=== PATIENT | female | born 1935 | race American Indian/Alaskan Native ===

== ENCOUNTER 2018-09-22 08:43 | Inpatient (IN) | payer OTHER ==
--- NOTE | 2018-09-22 08:48 | PDOC ---
History of Present Illness - General Stated Complaint: PAIN Time Seen by Provider: 09/22/18 08:46 - History of Present Illness Initial Comments: 09/22/18 10:27 83f from [place], with pmh of diabetes, asthma, remote history of breast CA, and htn presents with back pain for the pasty 3 daysl The pain started suddenly in her left lower back as she was sitting down and moved to her left scapula where it is now 8/10. She is usually able to ambulate on her own but now needs help to do so. Denies trauma, difficulty breathing, chest pain, palpitations, fever chills, dysuria, constipation. Past History - Past Medical History Allergies/Adverse Reactions: Allergies Allergy/AdvReac Type Severity Reaction Status Date / Time No Known Allergies Allergy Verified 05/20/14 19:05 Home Medications: Ambulatory Orders Atorvastatin Ca [Lipitor] 40 mg PO HS 09/22/18 Bimatoprost [Lumigan] 1 drop IO HS 09/22/18 Brimonidine Tartrate/Timolol [Combigan Eye Drops] 1 drop OP BID 09/22/18 Cyclosporine [Restasis] 1 each OP BID 09/22/18 Dexlansoprazole [Dexilant] 60 mg PO DAILY 09/22/18 Diclofenac Sodium 50 mg PO BID 09/22/18 Diphenhydramine HCl 50 mg PO HS 09/22/18 Empagliflozin [Jardiance] 25 mg PO DAILY 09/22/18 Gabapentin [Neurontin -] 100 mg PO TID 09/22/18 Linagliptin [Tradjenta] 5 mg PO DAILY 09/22/18 Megestrol Acetate [Megace -] 40 mg PO DAILY 09/22/18 Metformin HCl [Metformin HCl ER] 500 mg PO BID 09/22/18 Mirabegron [Myrbetriq] 25 mg PO DAILY 09/22/18 Montelukast Sodium [Singulair] 10 mg PO HS 09/22/18 Potassium Chloride 10 meq PO DAILY 09/22/18 Prazosin HCl [Minipress] 1 mg PO HS 09/22/18 Pregabalin [Lyrica -] 75 mg PO BID 09/22/18 Propylene Glycol/Peg 400/Pf [Systane Ultra 0.4-0.3% Eye Drp] 1 each OP QID 09/22 Torsemide [Demadex] 10 mg PO DAILY 09/22/18 Vortioxetine Hydrobromide [Trintellix] 10 mg PO DAILY 09/22/18 traZODone HCL [Trazodone HCl] 100 mg PO HS 09/22/18 Cancer: Yes (breast) HTN: Yes - Immunization History Immunization Up to Date: Yes - Suicide/Smoking/Psychosocial Hx Smoking History: Never smoked Substance Use Type: None Review of Systems - Review of Systems Able to Perform ROS?: Yes Is the patient limited Armenian proficient: No Constitutional: No: Symptoms Reported HEENTM: No: Symptoms Reported Respiratory: No: Symptoms reported Cardiac (ROS): No: Symptoms Reported ABD/GI: No: Symptoms Reported : No: Symptoms Reported Musculoskeletal: Yes: See HPI Integumentary: No: Symptoms Reported Neurological: No: Symptoms reported All Other Systems: Reviewed and Negative *Physical Exam - Physical Exam General Appearance: Yes: Nourished, Appropriately Dressed. No: Apparent Distress HEENT: positive: EOMI, PARAMJIT, Normal ENT Inspection Respiratory/Chest: positive: Lungs Clear, Normal Breath Sounds. negative: Chest Tender, Respiratory Distress Cardiovascular: positive: Regular Rhythm, Regular Rate, S1, S2 Gastrointestinal/Abdominal: positive: Normal Bowel Sounds, Flat, Soft. negative : Tender Musculoskeletal: positive: Other (tender left scapular region) Extremity: positive: Normal Capillary Refill, Normal Inspection, Normal Range of Motion Integumentary: positive: Normal Color, Dry, Warm Neurologic: positive: Fully Oriented, Alert, Normal Mood/Affect ED Treatment Course - LABORATORY CBC & Chemistry Diagram: 09/22/18 09:19 09/22/18 09:19 Medical Decision Making - Medical Decision Making 09/22/18 09:58 MSK pain vs dissection vs PE vs OH CXR positive for widened mediastinum Patient signed consent to get CTA before obtaining creatinine level as we believe this is a urgent test to rule out dissection 09/22/18 10:47 CTA negative. All labs WNL. No skin lesions such as Zoster. Likely MSK pain such as pinch nerve. Will treat symptoms., 09/22/18 12:10 Now patient is admitting to tingling in left arm. Will admit to tele obs *DC/Admit/Observation/Transfer Diagnosis at time of Disposition: Pain of left scapula, Numbness and tingling in left hand - Discharge Dispostion Decision to Admit order: Yes - Referrals Referrals: ON STAFF,NOT [Primary Care Provider] - - Patient Instructions - Post Discharge Activity
[2018-09-22] MEDS ORDERED: IBUPROFEN 600 MG TABLET (FP) PO ONE ×2 (09:14→09:24)
--- NOTE | 2018-09-22 09:22 | PDOC ---
Attending Attestation - Resident Resident Name: Andres Dougherty - ED Attending Attestation I have performed the following: I have examined & evaluated the patient, The case was reviewed & discussed with the resident, I agree w/resident's findings & plan, Exceptions are as noted - HPI HPI: 09/22/18 09:21 83yo F hx NIDDM, asthma, HL, arthritis, glaucoma, depression, on a diuretic for unknown reasons presents with 3 days of sudden onset left lower back pain, radiating up to the left scapula that began while she was sitting down 3 days ago. No trauma, no heavy lifting. Pain has been persistent and making it difficult for patient to walk, prompting her daughter in law to bring her to the ED. No hx similar sxs. Pt reports pain is worst over the L scapula. Pain is not worse with food. Denies CP, SOB, palpitations. No urinary symptoms, fevers, chills. Tried tylenol with minimal relief. No recent travel or immobility. - Physicial Exam PE: 09/22/18 10:11 GENERAL: Awake, alert, and fully oriented, uncomfortable appearing but no acute distress HEAD: No signs of trauma EYES: EOMI, sclera anicteric, conjunctiva clear ENT: Nares patent, oropharynx clear without exudates. Moist mucosa NECK: Normal ROM, supple, no lymphadenopathy, JVD, or masses LUNGS: Breath sounds equal, clear to auscultation bilaterally. No wheezes, and no crackles HEART: Regular rate and rhythm, normal S1 and S2, no murmurs, rubs or gallops ABDOMEN: Soft, nontender, normoactive bowel sounds. No guarding, no rebound. No masses EXTREMITIES: Normal range of motion, no edema. No cords, erythema, or tenderness NEUROLOGICAL: Normal speech, cranial nerves intact, 5/5 strength in all 4 extremities, normal sensation to light touch in all 4 extremities, normal cerebellar exam, able to gait with assistance, normal tone SKIN: Warm, Dry, normal turgor, no rashes or lesions noted. - Medical Decision Making 09/22/18 10:13 83yo F hx asthma, HL presents to the ED with 3 days of sudden onset atraumatic L lower back pain radiating up to the L scapula. Vitals wnl. Exam with some inferior scapular ttp, but otherwise wnl. Given sudden onset atrauamatic nature , concern for aortic dissection and thus pt taken to CTA prior to labs. 09/22/18 10:50 CTA negative for dissection or PE DDx includes ACS vs musculoskeletal pain vs UTI Plan for 2nd trop, pain control, reassess 09/22/18 11:07 On re-evaluation, pt states she has had L hand tingling on and off since this morning Still very tender over L scapular area Per daughter in law, pt normally able to walk multiple blocks without issue but over the last few days, has not been walking due to increased scapular pain even when she walks to the bathroom In light of this, will admit pt to obs for ACS. HS is 4 Plan explained to patient and DIL, agree with plan Heart Score/ECG Review - History History: Moderately suspicious - Electrocardiogram EKG: Normal - Age Age: >/= 65 - Risk Factors Risk Factors Heart Score: Yes Hx Hypercholesterolemia, Yes Hx Diabetes Based on the list above the patient has:: 1-2 risk factors - Troponin Troponin: </= normal limit - Score Heart Score - Total: 4 #1 09/22/18 10:09 Twelve-lead EKG was performed and reviewed by me. Normal sinus rhythm, rate 70 to. Normal axis and intervals. No ST elevations. Isolated T-wave inversion in lead 3.
[2018-09-22 09:57] LABS: BASO % 0.8 % (0-2.0); EOS % 1.7 % (0-4.5); HEMATOCRIT 43.5 % (32.4-45.2); HEMOGLOBIN 13.9 GM/dL (10.7-15.3); MCH 30.4 pg (25.7-33.7); MCHC 31.9 g/dl (32.0-36.0); MEAN CELL VOLUME 95.3 fl (80-96); MEAN PLT VOLUME 7.7 fl (7.5-11.1); MONO % 6.8 % (3.8-10.2); NEUT % 61.7 % (42.8-82.8); PLATELET COUNT 217 K/MM3 (134-434); RBC 4.57 M/mm3 (3.60-5.2); RDW 15.3 % (11.6-15.6); WHITE BLOOD COUNT 4.7 K/mm3 (4.0-10.0)
[2018-09-22 10:09] LABS: ALBUMIN 3.4 g/dl (3.4-5.0); ALK PHOS 29 U/L (45-117); ANION GAP 6 MMOL/L (8-16); BILIRUBIN,TOTAL 0.5 mg/dL (0.2-1); BLOOD UREA NITROGEN 14 mg/dL (7-18); CALCIUM 7.9 mg/dL (8.5-10.1); CHLORIDE 110 mmol/L (98-107); CO2 26 mmol/L (21-32); CREATININE 0.6 mg/dL (0.55-1.3); GLUCOSE,RANDOM 103 mg/dL (74-106); POTASSIUM 4.3 mmol/L (3.5-5.1); SGOT/AST 19 U/L (15-37); SGPT/ALT 24 U/L (13-61); SODIUM 142 mmol/L (136-145); TOT PROT 6.5 g/dl (6.4-8.2)
[2018-09-22] MEDS ORDERED: LIDOCAINE 5% TOPICAL PATCH TP ONE (11:39)
[2018-09-22] MEDS ORDERED: LIDOCAINE 5% TOPICAL PATCH ONE (11:50)
--- NOTE | 2018-09-22 15:09 | EKG ---
Test Reason : Blood Pressure : / mmHG Vent. Rate : 072 BPM Atrial Rate : 072 BPM P-R Int : 136 ms QRS Dur : 078 ms QT Int : 412 ms P-R-T Axes : 030 005 017 degrees QTc Int : 451 ms NORMAL SINUS RHYTHM NORMAL ECG WHEN COMPARED WITH ECG OF 20-MAY-2014 19:57, VENT. RATE HAS DECREASED BY 35 BPM T WAVE INVERSION LESS EVIDENT IN ANTERIOR LEADS Confirmed by Ananth Gibson ([id number]) on 09/22/2018 3:08:42 PM Referred By: Confirmed By:Ananth Gibson
--- NOTE | 2018-09-22 15:11 | HP ---
CHIEF COMPLAINT: upper back pain, left shoulder pain. left arm numbness and tinging PCP: n/a HISTORY OF PRESENT ILLNESS: Patient is an 83 year old female with a past medical history of diabetes, asthma , breast cancer and hypertension. Daughter in law at bedside and provided most of the history as patient speaks primarily Armenian. Patient and daughter in law report that for the last 3 days, patient has experienced a sudden onset of back pain that radiates to the left shoulder scapula. The pain began 3 days ago and continued to worsen. No trauma, no falls reported. Patient reports that the back pain has worsened and has made it difficult for her to walk prompting an ED visit. She also reports numbness and tingling of left hand on and off since this morning. Pain and tenderness over left scapular area. Patient denies fever, chills, general malaise. She does have a history of malignancy (breast). No bowel or bladder dysfunction. In the ED a CTA was negative for dissection or PE. Patient has normal range of motion of left shoulder. able to move it freely. Will xray left shoulder to evaluate for trauma. thoracic lumbar spine CT ordered. ER course was notable for: (1) negative trops (2) negative head ct (3) Recent Travel: PAST MEDICAL HISTORY: PAST SURGICAL HISTORY: Social History: Smoking: denies Alcohol:denies Drugs: denies Family History: Allergies No Known Allergies Allergy (Verified 05/20/14 19:05) HOME MEDICATIONS: Home Medications Medication Instructions Recorded Atorvastatin Ca [Lipitor] 40 mg PO HS 09/22/18 Bimatoprost [Lumigan] 1 drop IO HS 09/22/18 Brimonidine Tartrate/Timolol 1 drop OP BID 09/22/18 [Combigan Eye Drops] Cyclosporine [Restasis] 1 each OP BID 09/22/18 Dexlansoprazole [Dexilant] 60 mg PO DAILY 09/22/18 Diclofenac Sodium 50 mg PO BID 09/22/18 Diphenhydramine HCl 50 mg PO HS 09/22/18 Empagliflozin [Jardiance] 25 mg PO DAILY 09/22/18 Gabapentin [Neurontin -] 100 mg PO TID 09/22/18 Linagliptin [Tradjenta] 5 mg PO DAILY 09/22/18 Megestrol Acetate [Megace -] 40 mg PO DAILY 09/22/18 Metformin HCl [Metformin HCl ER] 500 mg PO BID 09/22/18 Mirabegron [Myrbetriq] 25 mg PO DAILY 09/22/18 Montelukast Sodium [Singulair] 10 mg PO HS 09/22/18 Potassium Chloride 10 meq PO DAILY 09/22/18 Prazosin HCl [Minipress] 1 mg PO HS 09/22/18 Pregabalin [Lyrica -] 75 mg PO BID 09/22/18 Propylene Glycol/Peg 400/Pf 1 each OP QID 09/22/18 [Systane Ultra 0.4-0.3% Eye Drp] Torsemide [Demadex] 10 mg PO DAILY 09/22/18 Vortioxetine Hydrobromide 10 mg PO DAILY 09/22/18 [Trintellix] traZODone HCL [Trazodone HCl] 100 mg PO HS 09/22/18 PHYSICAL EXAMINATION Vital Signs - 24 hr 09/22/18 09/22/18 08:43 11:09 Temperature 96.7 F L 97.6 F Pulse Rate 72 Pulse Rate [ 76 Left Apical] Respiratory 18 16 Rate Blood Pressure 140/74 Blood Pressure 134/80 [Left Arm] O2 Sat by Pulse 95 98 Oximetry (%) GENERAL: Awake, alert, and fully oriented, in no acute distress. HEAD: Normal with no signs of trauma. EYES: Pupils equal, round and reactive to light, extraocular movements intact, sclera anicteric, conjunctiva clear. No lid lag. EARS, NOSE, THROAT: Ears normal, nares patent, oropharynx clear without exudates. Moist mucous membranes. NECK: Normal range of motion, supple without lymphadenopathy, JVD, or masses. LUNGS: Breath sounds equal, clear to auscultation bilaterally. No wheezes HEART: Regular rate and rhythm ABDOMEN: Soft, nontender, not distended, normoactive bowel sounds, no guarding, no rebound, no masses. No hepatomegaly or splenomegaly. UPPER EXTREMITIES: 2+ pulses, warm, well-perfused. No cyanosis. No clubbing. No peripheral edema. LOWER EXTREMITIES: No peripheral edema. NEUROLOGICAL: back pain, lower extremity weakness PSYCHIATRIC: Cooperative. Good eye contact. Appropriate mood and affect. SKIN: Warm, dry, normal turgor, no rashes or lesions noted, normal capillary refill. Laboratory Results - last 24 hr 09/22/18 09/22/18 09/22/18 09:19 09:19 09:19 WBC 4.7 RBC 4.57 Hgb 13.9 Hct 43.5 D MCV 95.3 MCH 30.4 MCHC 31.9 L RDW 15.3 D Plt Count 217 D MPV 7.7 Absolute Neuts (auto) 2.9 Neutrophils % 61.7 Lymphocytes % 29.0 D Monocytes % 6.8 Eosinophils % 1.7 Basophils % 0.8 Nucleated RBC % 0 Sodium 142 Potassium 4.3 Chloride 110 H Carbon Dioxide 26 Anion Gap 6 L BUN 14 Creatinine 0.6 Creat Clearance w eGFR > 60 Random Glucose 103 Calcium 7.9 L Total Bilirubin 0.5 AST 19 ALT 24 Alkaline Phosphatase 29 L Troponin I Cancelled < 0.02 Total Protein 6.5 Albumin 3.4 ASSESSMENT/PLAN: Patient is an 83 year old female with a past medical history of diabetes, asthma , breast cancer and hypertension. Daughter in law at bedside and provided most of the history as patient speaks primarily Armenian. Patient and daughter in law report that for the last 3 days, patient has experienced a sudden onset of back pain that radiates to the left shoulder scapula. The pain began 3 days ago and continued to worsen. No trauma, no falls reported. Patient reports that the back pain has worsened and has made it difficult for her to walk prompting an ED visit. She also reports numbness and tingling of left hand on and off since this morning. Pain and tenderness over left scapular area. No numbness of tingling of lower extremities. Patient denies fever, chills, general malaise. She does have a history of malignancy (breast). No bowel or bladder dysfunction. In the ED a CTA was negative for dissection or PE. Patient has normal range of motion of left shoulder. able to move it freely. thoracic lumbar spine CT ordered. Imaging Head CT 09/22: negative for acute process Chest xray: Neuro: Back pain/Left shoulder pain/difficulty ambulation left hand numbness/tingling difficulty with ambulation, back pain, shoulder pain shoulder scapula tender to touch, no trauma reported, no bruising. shoulder xray pending. thoracic/lumbar spine ordered neurology consult Endocrne: diabetes, on novolog ss Card: hypertension. continue home meds Rule out ACS. trend troponins. full code
[2018-09-22] MEDS ORDERED: KETOROLAC TROMETHAMINE 10 MG TABLET PO ONE (16:52)
[2018-09-22] MEDS ORDERED: PEG OP SCH (18:00)
[2018-09-22] MEDS ORDERED: [UNRECOGNIZED DRUG - OTHER] OP SCH (18:00)
[2018-09-22] MEDS ORDERED: PROPYLENE GLYCOL OP SCH (18:00)
[2018-09-22] MEDS: KETOROLAC TROMETHAMINE 10 MG TABLET PO SCH (18:09)
[2018-09-22] MEDS ORDERED: LIDOCAINE PATCH REMOVAL MC SCH ×2 (22:00)
[2018-09-22] MEDS ORDERED: PATIENT'S OWN MEDICATION (NON-FORMULARY) (Metformin Hcl [Metformin Hcl Er] 500 MG) PO SCH (22:00)
[2018-09-22] MEDS ORDERED: PATIENT'S OWN MEDICATION (NON-FORMULARY) (Brimonidine Tartrate/Timolol [Combigan 0.2%-0.5% OP SCH (22:00)
[2018-09-22] MEDS ORDERED: PATIENT'S OWN MEDICATION (NON-FORMULARY) (Bimatoprost [Lumigan] 1 DROP) IO SCH (22:00)
[2018-09-22] MEDS: INSULIN SLIDING SCALE (NOVOLOG) 1 VIAL SQ SCH (22:54)
[2018-09-22] MEDS ORDERED: traZODone HCL 50 MG TABLET (FP) ONE (22:57)
[2018-09-22] MEDS: ATORVASTATIN CA 40 MG TABLET (FP) PO SCH (23:00)
[2018-09-22] MEDS: PREGABALIN 75 MG CAPSULE PO SCH (23:00)
[2018-09-22] MEDS: traZODone HCL 100 MG TABLET (FP) PO SCH (23:01)
[2018-09-22] MEDS: LIDOCAINE PATCH REMOVAL MC SCH (23:05)
[2018-09-23] MEDS: KETOROLAC TROMETHAMINE 10 MG TABLET PO SCH ×4 (00:05→17:11)
[2018-09-23] MEDS: ACETAMINOPHEN 325 MG TABLET (FP) PO PRN (05:45)
[2018-09-23 07:09] VITALS: BMI 24.7
[2018-09-23] MEDS: INSULIN SLIDING SCALE (NOVOLOG) 1 VIAL SQ SCH ×4 (07:09→21:35)
[2018-09-23 07:26] LABS: HEMATOCRIT 42.2 % (32.4-45.2); HEMOGLOBIN 13.5 GM/dL (10.7-15.3); MCH 30.5 pg (25.7-33.7); MCHC 32.1 g/dl (32.0-36.0); PLATELET COUNT 202 K/MM3 (134-434); RBC 4.45 M/mm3 (3.60-5.2); RDW 15.3 % (11.6-15.6); WHITE BLOOD COUNT 5.1 K/mm3 (4.0-10.0)
[2018-09-23 08:06] LABS: ANION GAP 9 MMOL/L (8-16); BLOOD UREA NITROGEN 20 mg/dL (7-18); CHLORIDE 108 mmol/L (98-107); CO2 23 mmol/L (21-32); CREATININE 0.5 mg/dL (0.55-1.3); GLUCOSE,RANDOM 110 mg/dL (74-106); MAGNESIUM 2.3 mg/dL (1.8-2.4); POTASSIUM 3.7 mmol/L (3.5-5.1); SODIUM 140 mmol/L (136-145)
[2018-09-23] MEDS ORDERED: LIDOCAINE 5% TOPICAL PATCH TP SCH (10:00)
[2018-09-23] MEDS ORDERED: PATIENT'S OWN MEDICATION (NON-FORMULARY) (Vortioxetine Hydrobromide [Trintellix] 10 MG) PO SCH (10:00)
[2018-09-23] MEDS ORDERED: PATIENT'S OWN MEDICATION (NON-FORMULARY) (Potassium Chloride [Potassium Chloride] 10 MEQ) PO SCH (10:00)
[2018-09-23] MEDS ORDERED: PT OWN MED DRAWER 7, Y5N ONE ×4 (10:25→20:37)
[2018-09-23] MEDS: LIDOCAINE 5% TOPICAL PATCH TP SCH (10:31)
[2018-09-23] MEDS: PREGABALIN 75 MG CAPSULE PO SCH ×2 (10:31→21:29)
[2018-09-23] MEDS: TORSEMIDE 10 MG TABLET PO SCH (11:29)
[2018-09-23] MEDS ORDERED: MORPHINE SULFATE 2 MG/ML VIAL IM ONE (12:05)
[2018-09-23] MEDS ORDERED: ACETAMINOPHEN 1000 MG/100 ML VIAL (NON FORMULARY) IVPB ONE (14:17)
--- NOTE | 2018-09-23 15:33 | CON.NEURO ---
Consult Consult Specialty:: [facility] Referred by:: ER - History of Present Illness History of Present Illness: this is an 83-year-old right-handed Estonian speaking female patient with present medical history significant for 1. Coronary artery disease. 2. Mild dementia. 3. Breast cancer. 4. Hypertension. 5. Bronchial asthma According to the family patient comes in with the chief complaint of difficulty with the left neck pain back pain. patient was seen on the tele Nurse was at the bedside and reviewed the chart yesterday order some painkiller for the patient patient with no evidence of dissection or aneurysm on the CAT scan of the chest patient also had x-ray of the left shoulder patient still complains of significant pain. Patient localizes the pain to the left side of the neck radiating to left shoulder examined that area for shingles there is no rash no discharge. Patient claims that the pain is severe and not able to communicate with the patient regarding the questionnaire for the nature of the pain severity intensity. Patient denies any difficulty swallowing - History Source History Provided By: Patient, Medical Record Limitations to Obtaining History: Clinical Condition - Alcohol/Substance Use Hx Alcohol Use: No - Smoking History Smoking history: Never smoked Have you smoked in the past 12 months: No Home Medications - Allergies Allergies/Adverse Reactions: Allergies Allergy/AdvReac Type Severity Reaction Status Date / Time No Known Allergies Allergy Verified 05/20/14 19:05 - Home Medications Home Medications: Ambulatory Orders Atorvastatin Ca [Lipitor] 40 mg PO HS 09/22/18 Bimatoprost [Lumigan] 1 drop IO HS 09/22/18 Brimonidine Tartrate/Timolol [Combigan Eye Drops] 1 drop OP BID 09/22/18 Cyclosporine [Restasis] 1 each OP BID 09/22/18 Dexlansoprazole [Dexilant] 60 mg PO DAILY 09/22/18 Diclofenac Sodium 50 mg PO BID 09/22/18 Diphenhydramine HCl 50 mg PO HS 09/22/18 Empagliflozin [Jardiance] 25 mg PO DAILY 09/22/18 Gabapentin [Neurontin -] 100 mg PO TID 09/22/18 Linagliptin [Tradjenta] 5 mg PO DAILY 09/22/18 Megestrol Acetate [Megace -] 40 mg PO DAILY 09/22/18 Metformin HCl [Metformin HCl ER] 500 mg PO BID 09/22/18 Mirabegron [Myrbetriq] 25 mg PO DAILY 09/22/18 Montelukast Sodium [Singulair] 10 mg PO HS 09/22/18 Potassium Chloride 10 meq PO DAILY 09/22/18 Prazosin HCl [Minipress] 1 mg PO HS 09/22/18 Pregabalin [Lyrica -] 75 mg PO BID 09/22/18 Propylene Glycol/Peg 400/Pf [Systane Ultra 0.4-0.3% Eye Drp] 1 each OP QID 09/22 Torsemide [Demadex] 10 mg PO DAILY 09/22/18 Vortioxetine Hydrobromide [Trintellix] 10 mg PO DAILY 09/22/18 traZODone HCL [Trazodone HCl] 100 mg PO HS 09/22/18 Family Disease History - Family Disease History Family History: Unable to Obtain Review of Systems - Review of Systems Constitutional: reports: No Symptoms Eyes: reports: No Symptoms Musculoskeletal: reports: Back Pain, Joint Pain, Joint Swelling Physical Exam-Neuro Vital Signs: Vital Signs Temperature 98 F 09/23/18 14:00 Pulse Rate 77 09/23/18 14:00 Respiratory Rate 20 09/23/18 14:00 Blood Pressure 127/69 09/23/18 14:00 O2 Sat by Pulse Oximetry (%) 98 09/23/18 09:00 Constitutional: Yes: Well Nourished Neck: Yes: WNL Cardiovascular: Yes: WNL Labs: CBC, BMP 09/23/18 05:30 09/23/18 05:30 - Neuro Exam Level Of Consciousness: Yes: Oriented to Person, Oriented to Place Eyes: Yes: PERRLA Speech: WNL Dominant Hand: Right Cranial Nerves II-XII Intact: Yes Gag: Present DTR's: 1+ Left Bicep, 1+ Right Bicep, 1+ Left Brachioradialis, 1+ Right Brachioradialis Response to light touch: Normal Response to pain prick: Normal Response to temperature: Normal Motor Strength: 3/5: Left Arm, Right Arm, Left Leg, Right Leg Gait: Deferred Imaging - Results X-ray: Report Reviewed Cat Scan: Report Reviewed Problem List - Problems (1) Numbness and tingling in left hand Assessment/Plan: 83-year-old woman with multiple medical problem presents with left shoulder pain and scapular pain discomfort very sharp pain pretty much concerning for shingles although there is no rash on the skin. I personally had patients before were diagnosed with postherpetic neuralgia without the shingles. neurological differential diagnoses #1 rule out cervical radiculopathy. #2 questionable neuralgia questionable herpes induced 1. eurochecks every 1 hour. 2. Continue Lidoderm patches. 3. MRI of the cervical spine with no contrast. 4. Herpes simplex virus titers. 5. Change Neurontin to 300 mg every 12 hours side effects of sedation and dizziness were explained. 6. DVT prophylaxis. The give very much for referring this patient for neurological consultation. Code(s): R20.0 - ANESTHESIA OF SKIN; R20.2 - PARESTHESIA OF SKIN
[2018-09-23] MEDS ORDERED: traZODone HCL 50 MG TABLET (FP) ONE (20:34)
[2018-09-23] MEDS: BRIMONIDINE TARTRATE 0.2% OPHTHALMIC 5 ML BOTTLE OU SCH (21:27)
[2018-09-23] MEDS: traZODone HCL 100 MG TABLET (FP) PO SCH (21:28)
[2018-09-23] MEDS: ATORVASTATIN CA 40 MG TABLET (FP) PO SCH (21:29)
[2018-09-23] MEDS: LIDOCAINE PATCH REMOVAL MC SCH (21:29)
[2018-09-23] MEDS: GABAPENTIN 300 MG CAPSULE (FP) PO SCH (21:29)
[2018-09-23] MEDS: TIMOLOL 0.5% OPHTHALMIC SOL 5 ML BOTTLE OU SCH (21:30)
--- NOTE | 2018-09-23 22:07 | PN ---
Physical Exam: SUBJECTIVE: Patient seen and examined at the bedside. OBJECTIVE: still with severe left shoulder pain, relieved with neurontin and morphine Vital Signs Period Temp Pulse Resp BP Sys/Braden Pulse Ox Last 24 Hr 98 F-98.4 F 76-98 18-20 109-137/55-70 98 GENERAL: Awake, alert, and fully oriented, HEAD: Normal with no signs of trauma. EYES: Pupils equal, round and reactive to light, extraocular movements intact, sclera anicteric, conjunctiva clear. No lid lag. EARS, NOSE, THROAT: Ears normal, nares patent, oropharynx clear without exudates. Moist mucous membranes. NECK: Normal range of motion, supple without lymphadenopathy, JVD, or masses. LUNGS: Breath sounds equal, clear to auscultation bilaterally. No wheezes HEART: Regular rate and rhythm ABDOMEN: Soft, nontender, not distended, normoactive bowel sounds, no guarding, no rebound, no masses. No hepatomegaly or splenomegaly. UPPER EXTREMITIES: 2+ pulses, warm, well-perfused. No cyanosis. No clubbing. No peripheral edema. LOWER EXTREMITIES: No peripheral edema. NEUROLOGICAL: back pain, lower extremity weakness PSYCHIATRIC: Cooperative. Good eye contact. Appropriate mood and affect. SKIN: Warm, dry, normal turgor, no rashes or lesions noted, normal capillary refill. Laboratory Results - last 24 hr 09/22/18 09/23/18 09/23/18 21:41 05:30 05:30 WBC 5.1 RBC 4.45 Hgb 13.5 Hct 42.2 MCV 95.0 MCH 30.5 MCHC 32.1 RDW 15.3 Plt Count 202 MPV 8.0 Sodium 140 Potassium 3.7 Chloride 108 H Carbon Dioxide 23 Anion Gap 9 BUN 20 H Creatinine 0.5 L Creat Clearance w eGFR > 60 POC Glucometer Random Glucose 110 H Calcium 8.0 L Magnesium 2.3 Troponin I < 0.02 C-Reactive Protein < 0.3 Vitamin B12 464 09/23/18 09/23/18 06:27 11:30 WBC RBC Hgb Hct MCV MCH MCHC RDW Plt Count MPV Sodium Potassium Chloride Carbon Dioxide Anion Gap BUN Creatinine Creat Clearance w eGFR POC Glucometer 112 125 Random Glucose Calcium Magnesium Troponin I C-Reactive Protein Vitamin B12 Active Medications Generic Name Dose Route Start Last Admin Trade Name Freq PRN Reason Stop Dose Admin Acetaminophen 650 mg 09/22/18 18:37 09/23/18 05:45 Tylenol - PO 650 mg Q6H PRN Administration PAIN LEVEL 4 - 6 Atorvastatin Calcium 40 mg 09/22/18 22:00 09/23/18 21:29 Lipitor - PO 40 mg HS ALEX Administration Brimonidine Tartrate 1 drop 09/23/18 22:00 09/23/18 21:27 Alphagan 0.2% - OU 1 drop BID ALEX Administration Gabapentin 300 mg 09/23/18 22:00 09/23/18 21:29 Neurontin - PO 300 mg BID ALEX Administration Insulin Aspart 1 vial 09/22/18 22:00 09/23/18 21:35 Novolog Vial Sliding Scale - SQ Not Given ACHS [facility] Protocol Ketorolac Tromethamine 10 mg 09/22/18 18:00 09/23/18 17:11 Toradol PO 09/27/18 17:59 10 mg Q6HPO ALEX Administration Lidocaine 1 patch 09/23/18 10:00 09/23/18 10:31 Lidoderm Patch - TP 1 patch DAILY LAEX Administration Miscellaneous 1 each 09/22/18 22:00 09/23/18 21:29 Lidoderm Patch Removal MC Not Given DAILY@2200 ALEX Morphine Sulfate 0.5 mg 09/23/18 16:12 Morphine Sulfate IVPUSH Q6H PRN PAIN LEVEL 7 - 10 Non-Formulary Medication 1 drop 09/22/18 22:00 Bimatoprost [Lumigan] IO HS ALEX Non-Formulary Medication 10 mg 09/23/18 10:00 Vortioxetine Hydrobromide [Trintellix] PO DAILY ALEX Pregabalin 75 mg 09/22/18 22:00 09/23/18 21:29 Lyrica - PO 75 mg BID ALEX Administration Timolol Maleate 1 drop 09/23/18 22:00 09/23/18 21:30 Timoptic 0.5% OU 1 drop BID ALEX Administration Torsemide 10 mg 09/23/18 10:00 09/23/18 11:29 Demadex - PO 10 mg DAILY ALEX Administration Trazodone HCl 100 mg 09/22/18 22:00 09/23/18 21:28 Desyrel - PO 100 mg HS ALEX Administration ASSESSMENT/PLAN: Patient is an 83 year old female with a past medical history of diabetes, asthma , breast cancer and hypertension. Daughter in law at bedside and provided most of the history as patient speaks primarily Pashto. Patient and daughter in law report that for the last 3 days, patient has experienced a sudden onset of back pain that radiates to the left shoulder scapula. The pain began 3 days ago and continued to worsen. No trauma, no falls reported. Patient reports that the back pain has worsened and has made it difficult for her to walk prompting an ED visit. She also reports numbness and tingling of left hand on and off since this morning. Pain and tenderness over left scapular area. No numbness of tingling of lower extremities. Patient denies fever, chills, general malaise. She does have a history of malignancy (breast). No bowel or bladder dysfunction. In the ED a CTA was negative for dissection or PE. Imaging Head CT 09/22: negative for acute process Neuro: Back pain/Left shoulder pain/difficulty ambulation left hand numbness/tingling/left shoulder pain, severe thoracic/lumbar spine: old fracture deformity left transverse process of l3 multilevel moderate degenerative changes. circumferential diffuse disc bulging l4-5 and l5-s1. Seen by neurology. rule our radiculopahty and possible neuralgia, questionably herpes induced MRI of cervical spine ordered herpes titers ordered, neurontin added (300mg q 12h) neurology consulted and following, recommendations appreciated. Manage severe pain with morphine/neurontin. Ortho left shoulder severe pain denies trauma. shoulder xray negative for acute process. Endocrne: diabetes, on novolog ss. controlled. Card: hypertension. continue home meds Rule out ACS. troponins negative, normal ekg Visit type - Emergency Visit Emergency Visit: Yes ED Registration Date: 09/22/18 Care time: The patient presented to the Emergency Department on the above date and was hospitalized for further evaluation of their emergent condition. - New Patient This patient is new to me today: No - Critical Care Critical Care patient: No - Discharge Referral Referred to [facility] Med P.C.: No
[2018-09-24] MEDS: KETOROLAC TROMETHAMINE 10 MG TABLET PO SCH ×4 (01:32→18:10)
[2018-09-24] MEDS: INSULIN SLIDING SCALE (NOVOLOG) 1 VIAL SQ SCH ×4 (06:16→22:56)
[2018-09-24 07:00] LABS: BASO % 0.6 % (0-2.0); EOS % 3.8 % (0-4.5); HEMATOCRIT 41.8 % (32.4-45.2); HEMOGLOBIN 13.4 GM/dL (10.7-15.3); LYMPH % 31.5 % (8-40); MCH 30.4 pg (25.7-33.7); MCHC 32.1 g/dl (32.0-36.0); MEAN CELL VOLUME 94.9 fl (80-96); MEAN PLT VOLUME 7.8 fl (7.5-11.1); MONO % 8.6 % (3.8-10.2); NEUT % 55.5 % (42.8-82.8); PLATELET COUNT 195 K/MM3 (134-434); RBC 4.41 M/mm3 (3.60-5.2); RDW 15.2 % (11.6-15.6); WHITE BLOOD COUNT 5.2 K/mm3 (4.0-10.0)
[2018-09-24 07:22] LABS: ALK PHOS 24 U/L (45-117); ANION GAP 8 MMOL/L (8-16); BILIRUBIN,TOTAL 0.5 mg/dL (0.2-1); BLOOD UREA NITROGEN 26 mg/dL (7-18); CHLORIDE 107 mmol/L (98-107); CHOLESTEROL 197 mg/dL (50-200); CO2 28 mmol/L (21-32); CREATININE 0.6 mg/dL (0.55-1.3); GLUCOSE,RANDOM 124 mg/dL (74-106); HDL CHOLESTEROL 41 mg/dL (40-60); MAGNESIUM 2.4 mg/dL (1.8-2.4); POTASSIUM 3.8 mmol/L (3.5-5.1); SGOT/AST 23 U/L (15-37); SGPT/ALT 23 U/L (13-61); SODIUM 142 mmol/L (136-145); TOT PROT 5.7 g/dl (6.4-8.2); TRIGLYCERIDES 107 mg/dL (0-150)
[2018-09-24] MEDS ORDERED: PT OWN MED DRAWER 7, Y5N ONE (10:55)
[2018-09-24] MEDS: TORSEMIDE 10 MG TABLET PO SCH (11:05)
[2018-09-24] MEDS: BRIMONIDINE TARTRATE 0.2% OPHTHALMIC 5 ML BOTTLE OU SCH ×2 (11:05→22:53)
[2018-09-24] MEDS: LIDOCAINE 5% TOPICAL PATCH TP SCH (11:06)
[2018-09-24] MEDS: HEPARIN NA (PORCINE) 5,000 UNITS/ML 1ML VIAL SQ SCH ×2 (11:06→22:42)
[2018-09-24] MEDS: GABAPENTIN 300 MG CAPSULE (FP) PO SCH ×2 (11:07→22:42)
[2018-09-24] MEDS: PREGABALIN 75 MG CAPSULE PO SCH ×2 (11:07→22:42)
[2018-09-24] MEDS: TIMOLOL 0.5% OPHTHALMIC SOL 5 ML BOTTLE OU SCH ×2 (11:07→22:54)
[2018-09-24] MEDS: ACETAMINOPHEN 325 MG TABLET (FP) PO PRN (16:25)
[2018-09-24] MEDS: MORPHINE SULFATE 2 MG/ML VIAL IVPUSH PRN (16:34)
--- NOTE | 2018-09-24 17:54 | PN ---
Physical Exam: SUBJECTIVE: Patient seen and examined at the bedside. son at the bedside. OBJECTIVE: cervical mri pending ambulating 65 feet with physical therapy Vital Signs Period Temp Pulse Resp BP Sys/Braden Pulse Ox Last 24 Hr 97.8 F-98.3 F 64-83 18-20 92-119/58-65 94 GENERAL: Awake, alert, and fully oriented, HEAD: Normal with no signs of trauma. EYES: Pupils equal, round and reactive to light, extraocular movements intact, sclera anicteric, conjunctiva clear. No lid lag. EARS, NOSE, THROAT: Ears normal, nares patent, oropharynx clear without exudates. Moist mucous membranes. NECK: Normal range of motion, supple without lymphadenopathy, JVD, or masses. LUNGS: Breath sounds equal, clear to auscultation bilaterally. No wheezes HEART: Regular rate and rhythm ABDOMEN: Soft, nontender, not distended, normoactive bowel sounds, no guarding, no rebound, no masses. No hepatomegaly or splenomegaly. UPPER EXTREMITIES: 2+ pulses, warm, well-perfused. No cyanosis. No clubbing. No peripheral edema. LOWER EXTREMITIES: No peripheral edema. NEUROLOGICAL: back pain, lower extremity weakness PSYCHIATRIC: Cooperative. Good eye contact. Appropriate mood and affect. SKIN: Warm, dry, normal turgor, no rashes or lesions noted, normal capillary refill. Laboratory Results - last 24 hr 09/23/18 09/24/18 09/24/18 21:33 05:30 05:30 WBC RBC Hgb Hct MCV MCH MCHC RDW Plt Count MPV Absolute Neuts (auto) Neutrophils % Lymphocytes % Monocytes % Eosinophils % Basophils % Nucleated RBC % ESR 6 Sodium Potassium Chloride Carbon Dioxide Anion Gap BUN Creatinine Creat Clearance w eGFR POC Glucometer 142 Random Glucose Hemoglobin A1c % 7.8 H Calcium Magnesium Total Bilirubin AST ALT Alkaline Phosphatase Total Protein Albumin Triglycerides Cholesterol Total LDL Cholesterol HDL Cholesterol 09/24/18 09/24/18 09/24/18 05:30 05:30 05:58 WBC 5.2 RBC 4.41 Hgb 13.4 Hct 41.8 MCV 94.9 MCH 30.4 MCHC 32.1 RDW 15.2 Plt Count 195 MPV 7.8 Absolute Neuts (auto) 2.9 Neutrophils % 55.5 Lymphocytes % 31.5 Monocytes % 8.6 Eosinophils % 3.8 D Basophils % 0.6 Nucleated RBC % 0 ESR Sodium 142 Potassium 3.8 Chloride 107 Carbon Dioxide 28 Anion Gap 8 BUN 26 H Creatinine 0.6 Creat Clearance w eGFR > 60 POC Glucometer 124 Random Glucose 124 H Hemoglobin A1c % Calcium 8.0 L Magnesium 2.4 Total Bilirubin 0.5 AST 23 ALT 23 Alkaline Phosphatase 24 L Total Protein 5.7 L Albumin 3.0 L Triglycerides 107 Cholesterol 197 Total LDL Cholesterol 145 H HDL Cholesterol 41 09/24/18 09/24/18 11:03 17:24 WBC RBC Hgb Hct MCV MCH MCHC RDW Plt Count MPV Absolute Neuts (auto) Neutrophils % Lymphocytes % Monocytes % Eosinophils % Basophils % Nucleated RBC % ESR Sodium Potassium Chloride Carbon Dioxide Anion Gap BUN Creatinine Creat Clearance w eGFR POC Glucometer 138 126 Random Glucose Hemoglobin A1c % Calcium Magnesium Total Bilirubin AST ALT Alkaline Phosphatase Total Protein Albumin Triglycerides Cholesterol Total LDL Cholesterol HDL Cholesterol Active Medications Generic Name Dose Route Start Last Admin Trade Name Freq PRN Reason Stop Dose Admin Acetaminophen 650 mg 09/22/18 18:37 09/24/18 16:25 Tylenol - PO 650 mg Q6H PRN Administration PAIN LEVEL 4 - 6 Atorvastatin Calcium 40 mg 09/22/18 22:00 09/23/18 21:29 Lipitor - PO 40 mg HS ALEX Administration Brimonidine Tartrate 1 drop 09/23/18 22:00 09/24/18 11:05 Alphagan 0.2% - OU 1 drop BID ALEX Administration Gabapentin 300 mg 09/23/18 22:00 09/24/18 11:07 Neurontin - PO 300 mg BID ALEX Administration Heparin Sodium (Porcine) 5,000 unit 09/24/18 10:00 09/24/18 11:06 Heparin - SQ 5,000 unit BID ALEX Administration Insulin Aspart 1 vial 09/22/18 22:00 09/24/18 16:34 Novolog Vial Sliding Scale - SQ Not Given ACHS [facility] Protocol Ketorolac Tromethamine 10 mg 09/22/18 18:00 09/24/18 11:05 Toradol PO 09/27/18 17:59 10 mg Q6HPO ALEX Administration Lidocaine 1 patch 09/23/18 10:00 09/24/18 11:06 Lidoderm Patch - TP 1 patch DAILY ALEX Administration Miscellaneous 1 each 09/22/18 22:00 09/23/18 21:29 Lidoderm Patch Removal MC Not Given DAILY@2200 [facility] Morphine Sulfate 0.5 mg 09/23/18 16:12 09/24/18 16:34 Morphine Sulfate IVPUSH 0.5 mg Q6H PRN Administration PAIN LEVEL 7 - 10 Non-Formulary Medication 1 drop 09/22/18 22:00 Bimatoprost [Lumigan] IO HS ALEX Non-Formulary Medication 10 mg 09/23/18 10:00 Vortioxetine Hydrobromide [Trintellix] PO DAILY ALEX Pregabalin 75 mg 09/22/18 22:00 09/24/18 11:07 Lyrica - PO 75 mg BID ALEX Administration Timolol Maleate 1 drop 09/23/18 22:00 09/24/18 11:07 Timoptic 0.5% OU 1 drop BID ALEX Administration Torsemide 10 mg 09/23/18 10:00 09/24/18 11:05 Demadex - PO 10 mg DAILY ALEX Administration Trazodone HCl 100 mg 09/22/18 22:00 09/23/18 21:28 Desyrel - PO 100 mg HS AELX Administration ASSESSMENT/PLAN: Patient is an 83 year old female with a past medical history of diabetes, asthma , breast cancer and hypertension. Daughter in law at bedside and provided most of the history as patient speaks primarily Nepali. Patient and daughter in law report that for the last 3 days, patient has experienced a sudden onset of back pain that radiates to the left shoulder scapula. The pain began 3 days ago and continued to worsen. No trauma, no falls reported. Patient reports that the back pain has worsened and has made it difficult for her to walk prompting an ED visit. She also reports numbness and tingling of left hand on and off since this morning. Pain and tenderness over left scapular area. No numbness of tingling of lower extremities. Patient denies fever, chills, general malaise. She does have a history of malignancy (breast). No bowel or bladder dysfunction. In the ED a CTA was negative for dissection or PE. Imaging Head CT 09/22: negative for acute process Neuro: Back pain/Left shoulder pain/difficulty ambulation left hand numbness/tingling/left shoulder pain, severe thoracic/lumbar spine: old fracture deformity left transverse process of l3 multilevel moderate degenerative changes. circumferential diffuse disc bulging l4-5 and l5-s1. Seen by neurology. rule our radiculopahty and possible neuralgia, questionably herpes induced MRI of cervical spine ordered and pending herpes titers ordered, neurontin added (300mg q 12h) neurology consulted and following, recommendations appreciated. Manage severe pain with morphine/neurontin. Ortho left shoulder severe pain denies trauma. shoulder xray negative for acute process. Endocrne: diabetes, on novolog ss. controlled. Card: hypertension. continue home meds Rule out ACS. troponins negative, normal ekg. can be transferred out of telemonitoring. fen tolerating PO monitor electrolytes low salt/diabetic prophy heparin Visit type - Emergency Visit Emergency Visit: Yes ED Registration Date: 09/24/18 Care time: The patient presented to the Emergency Department on the above date and was hospitalized for further evaluation of their emergent condition. - New Patient This patient is new to me today: No - Critical Care Critical Care patient: No - Discharge Referral Referred to [facility] Med P.C.: No
[2018-09-24] MEDS ORDERED: predniSONE 20 MG TABLET (UD) PO ONE ×2 (18:30→23:00)
--- NOTE | 2018-09-24 18:41 | CONS ---
DATE OF CONSULTATION: 09/24/2018 REASON FOR CONSULTATION: Left upper extremity pain. HISTORY OF PRESENT ILLNESS: This is a pleasant Pashto-speaking lady of 83 years of age who was evaluated in the presence of her daughter, who was helping to translate. She had a sharp pain which radiated from the neck down to the scapula and also down the arm. She notes numbness and tingling in the left hand, which has been intermittent but seems to be somewhat more constant. She has been evaluated by neurology, who suspect that this may be cervical radiculopathy versus postherpetic neuralgia. She denies any abdominal or bladder dysfunction. The patient does have multiple medical problems including diabetes, asthma, breast cancer, hypertension. MEDICATION: Reviewed in the chart. ALLERGIES: Denies any allergies. PHYSICAL EXAMINATION: GENERAL: This is a well appearing female in no acute distress. She is seen sitting in the hospital bed. She is alert and oriented x3. BACK: Evaluation of the cervical spine demonstrates global mild to moderate decrease in range of motion. EXTREMITIES: Examination of left upper extremity demonstrates forward flexion of the shoulder to 150 degrees without pain, external rotation to 70 degrees without pain, and internal rotation to the flank. She has 4/5 strength in supraspinatus, 4/5 infraspinatus, and 4/5 subscapularis. She has 4/5 thumbs up, 4/5 finger abduction, and 4/5 okay sign. Sensation is grossly intact to light touch. 2+ radial pulse. Radiographs of the shoulder are reviewed. Acromioclavicular degenerative change. MRI C-spine is pending. ASSESSMENT: An 83-year-old female likely cervical radiculopathy. PLAN: I reviewed today's findings with the patient and their daughter. I reviewed that her exam is highly suggestive of cervical radiculopathy. I agree with on this point. While she is diabetic, her sugars are well controlled, and therefore, I believe a short course of steroids may be beneficial to her. I will start her on prednisone today. I will follow her sugars to insure there is no disproportionate reaction to this. The MRI will most likely reveal significant degenerative change, however no plain films are available for review at this time. If she is found to respond to oral steroids, pain management consultation can be considered. At this point, assuming no outlying parameters found on the MRI, she would be stable for discharge to be followed up as an outpatient with Dr. Lora in 1-2 weeks. I addressed all of patient's and her daughter's questions and concerns. They voiced understanding and agreement to the plan. KRISTYN TAN M.D. NANCY/[id number]
--- NOTE | 2018-09-24 18:47 | PN ---
Progress Note, Physician History of Present Illness: events noted Chart reviewed Still pain Still on telemetry - Current Medication List Current Medications: Active Medications Acetaminophen (Tylenol -) 650 mg PO Q6H PRN PRN Reason: PAIN LEVEL 4 - 6 Last Admin: 09/24/18 16:25 Dose: 650 mg Atorvastatin Calcium (Lipitor -) 40 mg PO HS [facility] Last Admin: 09/23/18 21:29 Dose: 40 mg Brimonidine Tartrate (Alphagan 0.2% -) 1 drop OU BID [facility] Last Admin: 09/24/18 11:05 Dose: 1 drop Gabapentin (Neurontin -) 300 mg PO BID [facility] Last Admin: 09/24/18 11:07 Dose: 300 mg Heparin Sodium (Porcine) (Heparin -) 5,000 unit SQ BID [facility] Last Admin: 09/24/18 11:06 Dose: 5,000 unit Insulin Aspart (Novolog Vial Sliding Scale -) 1 vial SQ [facility]; Protocol Last Admin: 09/24/18 16:34 Dose: Not Given Ketorolac Tromethamine (Toradol) 10 mg PO Q6HPO [facility] Stop: 09/27/18 17:59 Last Admin: 09/24/18 18:10 Dose: Not Given Lidocaine (Lidoderm Patch -) 1 patch TP DAILY [facility] Last Admin: 09/24/18 11:06 Dose: 1 patch Miscellaneous (Lidoderm Patch Removal) 1 each MC DAILY@2200 [facility] Last Admin: 09/23/18 21:29 Dose: Not Given Morphine Sulfate (Morphine Sulfate) 0.5 mg IVPUSH Q6H PRN PRN Reason: PAIN LEVEL 7 - 10 Last Admin: 09/24/18 16:34 Dose: 0.5 mg Non-Formulary Medication (Bimatoprost [Lumigan]) 1 drop IO [facility] Non-Formulary Medication (Vortioxetine Hydrobromide [Trintellix]) 10 mg PO DAILY [facility] Prednisone (Deltasone -) 30 mg PO ONCE ONE Stop: 09/25/18 08:01 Prednisone (Deltasone -) 20 mg PO ONCE ONE Stop: 09/26/18 08:01 Prednisone (Deltasone -) 10 mg PO ONCE ONE Stop: 09/27/18 08:01 Pregabalin (Lyrica -) 75 mg PO BID [facility] Last Admin: 09/24/18 11:07 Dose: 75 mg Timolol Maleate (Timoptic 0.5%) 1 drop OU BID [facility] Last Admin: 09/24/18 11:07 Dose: 1 drop Torsemide (Demadex -) 10 mg PO DAILY [facility] Last Admin: 09/24/18 11:05 Dose: 10 mg Trazodone HCl (Desyrel -) 100 mg PO HS [facility] Last Admin: 09/23/18 21:28 Dose: 100 mg - Objective Vital Signs: Vital Signs Temperature 98.2 F 09/24/18 14:00 Pulse Rate 83 09/24/18 14:00 Respiratory Rate 20 09/24/18 14:00 Blood Pressure 92/58 L 09/24/18 14:00 O2 Sat by Pulse Oximetry (%) 94 L 09/23/18 21:00 Constitutional: Yes: Well Nourished Eyes: Yes: WNL HENT: Yes: WNL Labs: CBC, BMP 09/24/18 05:30 09/24/18 05:30 Problem List - Problems (1) Numbness and tingling in left hand Assessment/Plan: cervical radiculopathy Questionable herpes 11. Await HSV titer 2. I object the idea that the patient should start on prednisone given her history of diabetes and no clear diagnosis yet 3. Await MRI of the C-spine. 4. Continue the combination of the Neurontin and the Lidoderm patches. 5. Out of bed to chair. 6. Neurologically patient can go to medical floor. Code(s): R20.0 - ANESTHESIA OF SKIN; R20.2 - PARESTHESIA OF SKIN
[2018-09-24] MEDS ORDERED: traZODone HCL 50 MG TABLET (FP) ONE (22:33)
[2018-09-24] MEDS: ATORVASTATIN CA 40 MG TABLET (FP) PO SCH (22:42)
[2018-09-24] MEDS: traZODone HCL 100 MG TABLET (FP) PO SCH (22:42)
[2018-09-24] MEDS: LIDOCAINE PATCH REMOVAL MC SCH (22:54)
[2018-09-25] MEDS: KETOROLAC TROMETHAMINE 10 MG TABLET PO SCH ×3 (07:13→13:03)
[2018-09-25] MEDS: INSULIN SLIDING SCALE (NOVOLOG) 1 VIAL SQ SCH ×4 (07:16→22:53)
[2018-09-25] MEDS ORDERED: predniSONE 10 MG TABLET (UD) PO ONE (08:00)
--- NOTE | 2018-09-25 08:44 | PN ---
Progress Note (short form) - Note Progress Note: Patient is feeling better with no acute distress, still having the shoulder pain but less. Vital Signs Temperature 98.3 F 09/25/18 07:12 Pulse Rate 72 09/25/18 07:12 Respiratory Rate 20 09/25/18 07:12 Blood Pressure 95/55 L 09/25/18 07:12 O2 Sat by Pulse Oximetry (%) 94 L 09/24/18 21:00 GENERAL: Awake, alert, and fully oriented, HEAD: Normal with no signs of trauma. EYES: Pupils equal, round and reactive to light, extraocular movements intact, sclera anicteric, conjunctiva clear. EARS, NOSE, THROAT: Ears normal, oropharynx clear without exudates. Moist mucous membranes. NECK: Normal range of motion, supple without lymphadenopathy, JVD, or masses. LUNGS: Breath sounds equal, clear to auscultation bilaterally. No wheezes HEART: Regular rate and rhythm ABDOMEN: Soft, nontender, not distended, normoactive bowel sounds, no guarding, no rebound, no masses. No hepatomegaly or splenomegaly. EXTREMITIES: 2+ pulses, warm, well-perfused. No cyanosis. No clubbing. No peripheral edema. NEUROLOGICAL: back pain, lower extremity weakness PSYCHIATRIC: Cooperative. Good eye contact. Appropriate mood and affect. SKIN: Warm, dry, normal turgor, no rashes or lesions noted, normal capillary refill. CBCD WBC 5.2 K/mm3 (4.0-10.0) 09/24/18 05:30 RBC 4.41 M/mm3 (3.60-5.2) 09/24/18 05:30 Hgb 13.4 GM/dL (10.7-15.3) 09/24/18 05:30 Hct 41.8 % (32.4-45.2) 09/24/18 05:30 MCV 94.9 fl (80-96) 09/24/18 05:30 MCHC 32.1 g/dl (32.0-36.0) 09/24/18 05:30 RDW 15.2 % (11.6-15.6) 09/24/18 05:30 Plt Count 195 K/MM3 (134-434) 09/24/18 05:30 MPV 7.8 fl (7.5-11.1) 09/24/18 05:30 CMP Sodium 142 mmol/L (136-145) 09/24/18 05:30 Potassium 3.8 mmol/L (3.5-5.1) 09/24/18 05:30 Chloride 107 mmol/L (98-107) 09/24/18 05:30 Carbon Dioxide 28 mmol/L (21-32) 09/24/18 05:30 Anion Gap 8 MMOL/L (8-16) 09/24/18 05:30 BUN 26 mg/dL (7-18) H 09/24/18 05:30 Creatinine 0.6 mg/dL (0.55-1.3) 09/24/18 05:30 Creat Clearance w eGFR > 60 (>60) 09/24/18 05:30 Random Glucose 124 mg/dL (74-106) H 09/24/18 05:30 Calcium 8.0 mg/dL (8.5-10.1) L 09/24/18 05:30 Total Bilirubin 0.5 mg/dL (0.2-1) 09/24/18 05:30 AST 23 U/L (15-37) 09/24/18 05:30 ALT 23 U/L (13-61) 09/24/18 05:30 Alkaline Phosphatase 24 U/L (45-117) L 09/24/18 05:30 Total Protein 5.7 g/dl (6.4-8.2) L 09/24/18 05:30 Albumin 3.0 g/dl (3.4-5.0) L 09/24/18 05:30 CARDIAC ENZYMES Troponin I < 0.02 ng/ml (0.00-0.05) 09/22/18 21:41 Current Medications Generic Name Dose Route Start Last Admin Trade Name Freq PRN Reason Stop Dose Admin Acetaminophen 650 mg 09/22/18 18:37 09/24/18 16:25 Tylenol - PO 650 mg Q6H PRN Administration PAIN LEVEL 4 - 6 Atorvastatin Calcium 40 mg 09/22/18 22:00 09/24/18 22:42 Lipitor - PO 40 mg HS ALEX Administration Brimonidine Tartrate 1 drop 09/23/18 22:00 09/24/18 22:53 Alphagan 0.2% - OU 1 drop BID ALEX Administration Gabapentin 300 mg 09/23/18 22:00 09/24/18 22:42 Neurontin - PO 300 mg BID ALEX Administration Heparin Sodium (Porcine) 5,000 unit 09/24/18 10:00 09/24/18 22:42 Heparin - SQ 5,000 unit BID ALEX Administration Insulin Aspart 1 vial 09/22/18 22:00 09/25/18 07:16 Novolog Vial Sliding Scale - SQ 2 units ACHS ALEX Administration Protocol Ketorolac Tromethamine 10 mg 09/22/18 18:00 09/25/18 07:13 Toradol PO 09/27/18 17:59 Not Given Q6HPO ALEX Lidocaine 1 patch 09/23/18 10:00 09/24/18 11:06 Lidoderm Patch - TP 1 patch DAILY ALEX Administration Miscellaneous 1 each 09/22/18 22:00 09/24/18 22:54 Lidoderm Patch Removal MC 1 each DAILY@2200 ALEX Administration Morphine Sulfate 0.5 mg 09/23/18 16:12 09/24/18 16:34 Morphine Sulfate IVPUSH 0.5 mg Q6H PRN Administration PAIN LEVEL 7 - 10 Non-Formulary Medication 1 drop 09/22/18 22:00 Bimatoprost [Lumigan] IO HS [facility] Non-Formulary Medication 10 mg 09/23/18 10:00 Vortioxetine Hydrobromide [Trintellix] PO DAILY ALEX Prednisone 20 mg 09/26/18 08:00 Deltasone - PO 09/26/18 08:01 ONCE ONE Prednisone 10 mg 09/27/18 08:00 Deltasone - PO 09/27/18 08:01 ONCE ONE Pregabalin 75 mg 09/22/18 22:00 09/24/18 22:42 Lyrica - PO 75 mg BID ALEX Administration Timolol Maleate 1 drop 09/23/18 22:00 09/24/18 22:54 Timoptic 0.5% OU 1 drop BID ALEX Administration Torsemide 10 mg 09/23/18 10:00 09/24/18 11:05 Demadex - PO 10 mg DAILY ALEX Administration Trazodone HCl 100 mg 09/22/18 22:00 09/24/18 22:42 Desyrel - PO 100 mg HS ALEX Administration Home Medications Medication Instructions Recorded Atorvastatin Ca [Lipitor] 40 mg PO HS 09/22/18 Bimatoprost [Lumigan] 1 drop IO HS 09/22/18 Brimonidine Tartrate/Timolol 1 drop OP BID 09/22/18 [Combigan Eye Drops] Cyclosporine [Restasis] 1 each OP BID 09/22/18 Dexlansoprazole [Dexilant] 60 mg PO DAILY 09/22/18 Diclofenac Sodium 50 mg PO BID 09/22/18 Diphenhydramine HCl 50 mg PO HS 09/22/18 Empagliflozin [Jardiance] 25 mg PO DAILY 09/22/18 Gabapentin [Neurontin -] 100 mg PO TID 09/22/18 Linagliptin [Tradjenta] 5 mg PO DAILY 09/22/18 Megestrol Acetate [Megace -] 40 mg PO DAILY 09/22/18 Metformin HCl [Metformin HCl ER] 500 mg PO BID 09/22/18 Mirabegron [Myrbetriq] 25 mg PO DAILY 09/22/18 Montelukast Sodium [Singulair] 10 mg PO HS 09/22/18 Potassium Chloride 10 meq PO DAILY 09/22/18 Prazosin HCl [Minipress] 1 mg PO HS 09/22/18 Pregabalin [Lyrica -] 75 mg PO BID 09/22/18 Propylene Glycol/Peg 400/Pf 1 each OP QID 09/22/18 [Systane Ultra 0.4-0.3% Eye Drp] Torsemide [Demadex] 10 mg PO DAILY 09/22/18 Vortioxetine Hydrobromide 10 mg PO DAILY 09/22/18 [Trintellix] traZODone HCL [Trazodone HCl] 100 mg PO HS 09/22/18 Laboratory Tests 09/22/18 09/22/18 09/22/18 09:19 15:40 21:41 Troponin I < 0.02 < 0.02 < 0.02 Clinical formation. Radicular pain MRI of the cervical spine C-. Multiple pulse sequences were completed utilizing the [employer] 1.5T SIGNA MRI system. Sagittal. T2, FLAIR, STIR. CORONAL. T2. AXIAL. T1, T2. Comparison study. None Findings. No abnormality seen at the pontomedullary junction region. No evidence of tonsillar ectopia. Normal signal intensity of the visualized cerebellum, brainstem. Flow void is seen in the distal vertebral arteries, basilar artery. No abnormalities are seen in the region of the CP angles on the T2 coronal images Intact odontoid. Disc desiccation seen in the cervical spine, upper thoracic spine. C2-C3. There is no evidence of disc displacement, central spinal canal stenosis, or neural foraminal narrowing. C3-C4. There is no evidence of disc displacement, central spinal canal stenosis, or neural foramina narrowing. C4-C5. Triangular in shape midline disc protrusion, or disc osteophyte complex effacing the ventral subarachnoid space contacting the ventral surface of the spinal cord. Normal signal intensity of the CSF in the dorsal subarachnoid space. No evidence of central spinal canal stenosis , neural foraminal narrowing. C5-C6. Broad-based disc protrusion, or disc osteophyte complex encroaching on the ventral subarachnoid space. Focal thickening or calcification of the left ligamentum flavum measuring 7.2 mm x 3.9 mm, encroaching on the left ventral subarachnoid space. C6-C7. Left posterolateral, left lateral recess disc protrusion effacing the ventral subarachnoid space, contacting the ventral surface of the spinal cord, causing stenosis of the medial aspect of the left neural foramen. Thickened ligamentum flavum with possible calcifications within the ligamentum flavum measuring 5.5 mm x 3.2 mm on the left side, 6.5 mm x 3.2 mm on the right side. On axial images through the disc space, there is effacement of the dorsal subarachnoid space. Central spinal canal stenosis is noted. Stenosis of the left neural foramen. C7-T1. There is no evidence of disc displacement, central spinal canal stenosis, or neural foramina narrowing. Upper thoracic spine. There is no evidence of disc displacement, central spinal canal stenosis, or neural foraminal narrowing. Flow-void is observed in the vertebral, carotid arteries. No evidence of pathological bone marrow replacement, edema. Fatty bone marrow changes No evidence of prevertebral soft tissue swelling. Enlarged right lobe of the thyroid gland containing nodules. Thyroid ultrasound may be obtained for further evaluation Impression. C6-C7. Left posterolateral, left lateral recess disc protrusion effacing the ventral subarachnoid space, contacting the ventral surface of the spinal cord, causing stenosis of the medial aspect of the left neural foramen. Thickened ligamentum flavum with possible calcifications within the ligamentum flavum measuring 5.5 mm x 3.2 mm on the left side, 6.5 mm x 3.2 mm on the right side. On axial images through the disc space, there is effacement of the dorsal subarachnoid space. Central spinal canal stenosis is noted. Stenosis of the left neural foramen. C4-C5. Triangular in shape midline disc protrusion, or disc osteophyte complex effacing the ventral subarachnoid space contacting the ventral surface of the spinal cord. No evidence of central spinal canal stenosis, neural foraminal narrowing. C5-C6. Broad-based disc protrusion, or disc osteophyte complex encroaching on the ventral subarachnoid space. Focal thickening or calcification of the left ligamentum flavum measuring 7.2 mm x 3.9 mm, encroaching on the left ventral subarachnoid space. Normal signal intensity of the spinal cord. No evidence of compression deformities. Fatty bone marrow changes. No evidence of bone marrow edema pathological bone marrow replacement. Enlarged right lobe of the thyroid gland with nodules. Reported By: Andrew Saravia MD 09/25/18814 Technologist: Raymundo Mims Transcribed Date/Time: 09/25/18814 Shot Examiner: Andrew Saravia. Head CT 09/22: negative for acute process CTA: negative for dissection or PE. Assessment/Plan: Patient is an 83 yo female with PMHx of diabetes, asthma, breast cancer and hypertension. The Hx is provided by patient's Daughter in law at bedside.Patient speaks primarily Luxembourgish. Patient and daughter in law report that for the last 3 days, patient has experienced a sudden onset of back pain that radiates to the left shoulder scapula. She also reports numbness and tingling of left hand on and off since this morning. Pain and tenderness over left scapular area. No numbness of tingling of lower extremities. # Acute Back pain/Left shoulder pain/difficulty ambulation with left hand numbness/tingling/left shoulder pain. on Decadron for pain, Lyrica # Severe thoracic/lumbar spine pain : old fx deformity left transverse process of L3 multilevel moderate degenerative changes. circumferential diffuse disc bulging L4-5 and L5-S1. Neurology consult appreciated with questionable radiculopathy and possible neuralgia, questionably herpes induced. Herpes titers ordered, patient on Lyrica will continue , neurology consult appreciated . will discontinue Gabapentin and keep her on Lyrica, discussed with neurologist. #left shoulder severe pain; denies trauma. shoulder xray negative for acute process. #T2DM : novolog ss. controlled. #HTN : Rule out ACS. troponins negative, normal ekg. DVT px: heparin Visit type - Emergency Visit Emergency Visit: Yes ED Registration Date: 09/24/18 Care time: The patient presented to the Emergency Department on the above date and was hospitalized for further evaluation of their emergent condition. - New Patient This patient is new to me today: Yes Date on this admission: 09/25/18 - Critical Care Critical Care patient: No - Discharge Referral Referred to [facility] Med [facility].: No
[2018-09-25] MEDS ORDERED: PT OWN MED DRAWER 7, Y5N ONE ×5 (10:48→21:47)
[2018-09-25] MEDS: HEPARIN NA (PORCINE) 5,000 UNITS/ML 1ML VIAL SQ SCH ×2 (10:50→22:51)
[2018-09-25] MEDS: TORSEMIDE 10 MG TABLET PO SCH (10:51)
[2018-09-25] MEDS: GABAPENTIN 300 MG CAPSULE (FP) PO SCH ×2 (10:51→22:52)
[2018-09-25] MEDS: PREGABALIN 75 MG CAPSULE PO SCH ×2 (10:51→22:52)
[2018-09-25] MEDS: LIDOCAINE 5% TOPICAL PATCH TP SCH (10:59)
[2018-09-25] MEDS: BRIMONIDINE TARTRATE 0.2% OPHTHALMIC 5 ML BOTTLE OU SCH ×2 (11:00→22:51)
[2018-09-25] MEDS: TIMOLOL 0.5% OPHTHALMIC SOL 5 ML BOTTLE OU SCH ×2 (11:00→22:53)
--- NOTE | 2018-09-25 16:10 | PN ---
Progress Note (short form) - Note Progress Note: NEUROSURGERY CONSULT DICTATED Chart reviewed MRI reviewed Pt examined Family at bedside, who translated h/o diabetes, asthma, breast cancer and hypertension. c/o 3 days h/o sudden sudden onset of neck/back pain that radiates to the left shoulder scapula. No trauma or falls. Reports numbness and tingling of left hand. Pain better since admission on steroid. PE: AF, VSS HEENT- NC/AT; neck- supple. L sided muscle spasm and L scapular tenderness; Cor - RRR; Lungs- CTA B; Abd- benign; Ext- no sign of DVT CN- intact; Motor- 5/5 except R triceps 4- pain limited; Sensation- decreased LT L C7; DTR- hyporeflexic, no LTS C spine MRI- multilevel DDD, small central disc protrusion C4-5 with thecal sac impingement; broad based C5-6 disc bulge/osteophyte with mild thecal sac impingement; L C6-7 paracentral disc protrusion with thecal sac and L C7 root impingement, mild stenosis L C6-7 HNP with L C7 radiculopathy Cont Neurontin PT/modalities Given short course of symptoms should undergo medical/conservative tx (PT, Steroid then NSAIDS, neurontin/lyrica, possible EPSI) for pain control first Soft collar for comfort Since pt it improving should pursue the above medical regimen
[2018-09-25] MEDS: MORPHINE SULFATE 2 MG/ML VIAL IVPUSH PRN (16:11)
--- NOTE | 2018-09-25 17:51 | PN ---
Progress Note, Physician History of Present Illness: events noted and chart reviewed MRI of the cervical spine results were reviewed Consistent with multilevel disc herniation with neural foraminal narrowing at C6 -C7 No evidence of fluid collection or fracture Herpes titers are pending Appreciated the input by the neurosurgeon. Patient was neurologically stable that she was transferred to regular floor. - Current Medication List Current Medications: Active Medications Acetaminophen (Tylenol -) 650 mg PO Q6H PRN PRN Reason: PAIN LEVEL 4 - 6 Last Admin: 09/24/18 16:25 Dose: 650 mg Atorvastatin Calcium (Lipitor -) 40 mg PO HS [facility] Last Admin: 09/24/18 22:42 Dose: 40 mg Brimonidine Tartrate (Alphagan 0.2% -) 1 drop OU BID [facility] Last Admin: 09/25/18 11:00 Dose: 1 drop Gabapentin (Neurontin -) 300 mg PO BID [facility] Last Admin: 09/25/18 10:51 Dose: 300 mg Heparin Sodium (Porcine) (Heparin -) 5,000 unit SQ BID [facility] Last Admin: 09/25/18 10:50 Dose: 5,000 unit Insulin Aspart (Novolog Vial Sliding Scale -) 1 vial SQ [facility]; Protocol Last Admin: 09/25/18 16:26 Dose: 4 units Lidocaine (Lidoderm Patch -) 1 patch TP DAILY [facility] Last Admin: 09/25/18 10:59 Dose: Not Given Miscellaneous (Lidoderm Patch Removal) 1 each MC DAILY@2200 [facility] Last Admin: 09/24/18 22:54 Dose: 1 each Morphine Sulfate (Morphine Sulfate) 0.5 mg IVPUSH Q6H PRN PRN Reason: PAIN LEVEL 7 - 10 Last Admin: 09/25/18 16:11 Dose: 0.5 mg Non-Formulary Medication (Bimatoprost [Lumigan]) 1 drop IO HS [facility] Non-Formulary Medication (Vortioxetine Hydrobromide [Trintellix]) 10 mg PO DAILY [facility] Prednisone (Deltasone -) 20 mg PO ONCE ONE Stop: 09/26/18 08:01 Prednisone (Deltasone -) 10 mg PO ONCE ONE Stop: 09/27/18 08:01 Pregabalin (Lyrica -) 75 mg PO BID [facility] Last Admin: 09/25/18 10:51 Dose: 75 mg Timolol Maleate (Timoptic 0.5%) 1 drop OU BID [facility] Last Admin: 09/25/18 11:00 Dose: 1 drop Torsemide (Demadex -) 10 mg PO DAILY [facility] Last Admin: 09/25/18 10:51 Dose: 10 mg Trazodone HCl (Desyrel -) 100 mg PO HS [facility] Last Admin: 09/24/18 22:42 Dose: 100 mg - Objective Vital Signs: Vital Signs Temperature 97.7 F 09/25/18 11:00 Pulse Rate 96 H 09/25/18 11:00 Respiratory Rate 18 09/25/18 11:00 Blood Pressure 128/69 09/25/18 11:00 O2 Sat by Pulse Oximetry (%) 93 L 09/25/18 14:11 Constitutional: Yes: Well Nourished Eyes: Yes: WNL Neurological: Yes: Alert, Oriented, Babinski negative, Paresthesia ...Motor Strength: WNL Labs: CBC, BMP 09/24/18 05:30 09/24/18 05:30 Problem List - Problems (1) Numbness and tingling in left hand Assessment/Plan: cervical radiculopathy 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 Continue the Lidoderm patches. 2. Continue the nerve relaxant Neurontin. 3. Physical therapy. 4. Discharge planning with the need for nerve conduction testing electromyography of the upper extremities. Code(s): R20.0 - ANESTHESIA OF SKIN; R20.2 - PARESTHESIA OF SKIN
--- NOTE | 2018-09-25 18:10 | CONS ---
DATE OF CONSULTATION: 09/25/2018 REQUESTING PHYSICIAN: Dari Norman MD [place] TENDER: Bakari Contreras MD of Surgery. CHIEF COMPLAINT: Neck pain, left C7 radiculopathy. HISTORY OF PRESENT ILLNESS: The patient is an 83-year-old right-handed female with history of diabetes, hypertension, breast cancer, and asthma, who complains of 3+ day history of sudden onset of left-sided neck pain and left scapular pain. She denies any recent trauma or fall and had not lifted anything heavy. She stated her pain has continued to worsen in the last two days. She also complains of numbness of her left hand. Her pain has been better since admission. She was on steroids, Lyrica, Neurontin and narcotic pain killers for pain control. PAST MEDICAL HISTORY: Significant for hypertension, diabetes, asthma, breast cancer. CURRENT MEDICATIONS: 1. Prednisone taper. 2. Alphagan eyedrops. 3. Tylenol. 4. Subcutaneous heparin. 5. Neurontin. 6. Lyrica. 7. Desyrel. 8. Lidoderm Patch. 9. Timoptic. 10. Toradol. 11. Lipitor. 12. Insulin. 13. Demadex. 14. Morphine sulfate. ALLERGIES: No known drug allergies. FAMILY HISTORY: Noncontributory. SOCIAL HISTORY: She does not smoke or drink. She lives at home with her family. REVIEW OF SYSTEMS: Otherwise negative for major constitutional, head and neck, cardiovascular, pulmonary, gastrointestinal, genitourinary, endocrinologic, neurological, or psychological problems except as noted above. PHYSICAL EXAMINATION: Vital Signs: Temperature 97.7, blood pressure is 128/69 with pulse rate of 96, O2 saturation is 93% on room air. HEENT: Normocephalic, atraumatic, anicteric. Neck: Supple. She has left-sided cervical paraspinal muscle spasm and left scapular tenderness. Range of motion is diminished. Flexion to 30 degrees and extension to approximately 20 degrees. Lateral rotation is 45 degrees. Core: Demonstrated regular rhythm without murmur. Lungs: Clear bilaterally. She has decreased breath sounds at the bases. Abdomen: Benign. Extremities: No signs of DVT. Neurologic: She is awake, alert, and oriented x3. Her [id number] was present and translated for the consultation. Motor examination shows 5/5 strength except the left triceps, which is 4- and limited by pain. Sensory examination demonstrated numbness to the left C7 distribution to light touch. Deep tendon reflexes are hyporeflexic throughout. There is no pathological low tract sign. Gait is not tested for safety reasons. Cerebellar examination demonstrated intact [id number] examination. LABORATORY: Shows white blood cell count of 5.2, hemoglobin is 13.4, platelet count is 195,000. ESR is 6. Serum sodium is 142, potassium is 3.8, BUN 26, creatinine 0.6. Glucose is 124. Hemoglobin A1c is 7.8. MRI of the cervical spine demonstrated multilevel cervical degenerative disc disease. There is essential disc protrusion at C4-C5 with mild thecal sac impingement as well as disc bulge at C5-C6 with osteophyte, also with mild thecal sac impingement. There is a left C6-C7 paracentral disc protrusion with thecal sac in the left C7 interlaminar impingement. There is mild stenosis at this level. There is also slight foraminal narrowing on the left. IMPRESSION: 1. Left C6-C7 paracentral disc protrusion with left C7 radiculopathy. 2. Asthma. 3. Diabetes. 4. Hypertension. 5. History of breast cancer. RECOMMENDATIONS: The patient presents with 3+ day history of acute onset of left-sided neck pain and left scapular pain. She also has numbness of the left hand. Cardiac workup was negative. Her symptoms are consistent with that of C7 radiculopathy. This corresponds to the MRI finding of C6-C7 paracentral disc herniation on the left side. She has been on an oral steroid taper, which she could potentially be transitioned over to nonsteroidal anti-inflammatory medication after completion of the oral steroids. She has been on Neurontin and Lyrica. Her symptoms have improved somewhat already. Of course, physical therapy could be considered. A soft cervical collar can also be implemented to give her some comfort. With her age and multiple medical conditions, neurosurgical intervention is not offered at this early stage of her symptomatology. If her pain persists, despite medical treatment, she can always consider epidural steroid injections as well. One has to be cognizant of her underlying diabetes and her overall blood sugar control. The above was discussed with the patient at bedside through her [id number], who translated for this consultation. BAKARI CONTRERAS M.D. [id number]
[2018-09-25] MEDS ORDERED: POLYETHYLENE GLYCOL 3350 119 GM BTL PO ONE (18:21)
[2018-09-25] MEDS ORDERED: LIDOCAINE PATCH REMOVAL MC SCH (19:59)
[2018-09-25] MEDS ORDERED: MORPHINE SULFATE 2 MG/ML VIAL IVPUSH PRN (19:59)
[2018-09-25] MEDS ORDERED: ACETAMINOPHEN 325 MG TABLET (FP) PO PRN (19:59)
[2018-09-25] MEDS: DOCUSATE SODIUM 100 MG CAPSULE (FP) PO SCH (22:51)
[2018-09-25] MEDS: traZODone HCL 50 MG TABLET (FP) PO SCH (22:51)
[2018-09-25] MEDS: LIDOCAINE PATCH REMOVAL MC SCH (22:52)
[2018-09-25] MEDS: ATORVASTATIN CA 40 MG TABLET (FP) PO SCH (22:52)
[2018-09-26] MEDS: DOCUSATE SODIUM 100 MG CAPSULE (FP) PO SCH ×3 (07:05→22:51)
[2018-09-26] MEDS: INSULIN SLIDING SCALE (NOVOLOG) 1 VIAL SQ SCH ×4 (07:05→22:53)
[2018-09-26] MEDS ORDERED: predniSONE 20 MG TABLET (UD) PO ONE ×2 (08:00)
--- NOTE | 2018-09-26 08:53 | PN ---
Progress Note (short form) - Note Progress Note: NEUROSURGERY Neck/back pain that radiates to the left shoulder scapula. Some numbness and tingling of left hand. Reportedly OOB yesterday PE: AF, VSS HEENT- NC/AT; neck- supple. L sided muscle spasm and L scapular tenderness; Cor - RRR; Lungs- CTA B; Abd- benign; Ext- no sign of DVT CN- intact; Motor- 5/5 except R triceps 4- pain limited; Sensation- decreased LT L C7; DTR- hyporeflexic, no LTS C spine MRI- multilevel DDD, small central disc protrusion C4-5 with thecal sac impingement; broad based C5-6 disc bulge/osteophyte with mild thecal sac impingement; L C6-7 paracentral disc protrusion with thecal sac and L C7 root impingement, mild stenosis L C6-7 HNP with L C7 radiculopathy Cont Neurontin PT/modalities Given short course of symptoms should undergo medical/conservative tx (PT, steroid then NSAIDS, neurontin/lyrica, possible EPSI) for pain control first Soft collar for comfort F/u neurology/pain management post discharge Since pt it improving overall could pursue the above medical regimen Surgery reserved for intractable pain despite medical regimen above, and should be avoided if possible given age and other medical problems D/w medical team at bedside
[2018-09-26] MEDS: PREGABALIN 75 MG CAPSULE PO SCH ×2 (09:43→22:52)
[2018-09-26] MEDS: GABAPENTIN 300 MG CAPSULE (FP) PO SCH ×2 (09:43→22:53)
[2018-09-26] MEDS: HEPARIN NA (PORCINE) 5,000 UNITS/ML 1ML VIAL SQ SCH ×2 (09:43→22:52)
[2018-09-26] MEDS: LIDOCAINE 5% TOPICAL PATCH TP SCH (09:44)
[2018-09-26] MEDS: BRIMONIDINE TARTRATE 0.2% OPHTHALMIC 5 ML BOTTLE OU SCH ×2 (09:44→22:51)
[2018-09-26] MEDS ORDERED: PATIENT'S OWN MEDICATION (NON-FORMULARY) (Vortioxetine Hydrobromide [Trintellix] 10 MG) PO SCH (10:00)
[2018-09-26] MEDS: TIMOLOL 0.5% OPHTHALMIC SOL 5 ML BOTTLE OU SCH ×2 (11:23→22:56)
[2018-09-26] MEDS: TORSEMIDE 10 MG TABLET PO SCH (15:21)
--- NOTE | 2018-09-26 16:07 | DS ---
Physical Examination Vital Signs: Vital Signs Temperature 97 F L 09/26/18 14:00 Pulse Rate 70 09/26/18 14:00 Respiratory Rate 20 09/26/18 14:00 Blood Pressure 116/67 09/26/18 14:00 O2 Sat by Pulse Oximetry (%) 95 09/26/18 09:00 Neck: Yes: Tenderness ...Rectal Exam: Yes: Deferred Musculoskeletal: Yes: Back Pain Wound/Incision: No: Clean/Dry, Well Approximated, Sutures Intact, Kim Intact , Steri Strips, Open to air, Dressing Dry and Intact, Dressing Removed, Demian Removed, Sutures Removed, Draining, Reddened, Bleeding, Excoriated, Unapproximated, Other Neurological: Yes: Unsteady Gait Labs: CBC, BMP 09/24/18 05:30 09/24/18 05:30 Discharge Summary Reason For Visit: PAIN OF LEFT SCAPULA, NUMBNESS AND TINGLING OF Current Active Problems Numbness and tingling in left hand (Acute) Pain of left scapula (Acute) Hospital Course: 83 year old female admitted to [facility] from 09/22/18 - 09/26/18 for left shoulder/back pain and difficulty walking. Neck/back pain that radiates to the left shoulder/scapula with some numbness and tingling of left hand. MRI of cervical, thoracic and lumbar spine showed moderate degenerative changes and disc bulging cervical and lumbar spines. X-ray of the shoulder showed no fracture. Patient was seen by physical therapy and were seen by the neurologist and neurosurgeon. Given short duration of symptoms, conservative treatment was recommended such as PT, Gabapentin, torsemide, lidoderm patches, and wearing a soft neck collars. Patient is a poor surgical candidate due to advanced age and multiple comorbidities. IT was recommended she follow up with with neurology OP for possible nerve conduction testing electromyography of the arms. Continue all other home medications with the following change: Gabapentin increased to 300 mg by mouth 2 times a day. Please schedule a follow up appointment with neurologist Dr. Saúl Michelle [phone]. Please return to the ER if you have any signs or symptoms of chest pain, shortness of breath, uncontrollable fever, chills, nausea, vomiting, numbness, tingling, or weakness in any part of your body, changes in vision, or slurred speech. Please return to the ER if symptoms persist, worsen, or new symptoms arise. Shaye Pose[facility]usum [facility] @ [facility] [phone] Condition: Stable - Instructions Diet, Activity, Other Instructions: Alfonzo Gonzalez were admitted at [facility] from 09/22/18 - 09/28/18 for left shoulder/back pain and difficulty walking. Neck/back pain that radiates to the left shoulder scapula. Some numbness and tingling of left hand. You had an MRI of your cervical, thoracic and lumbar spine which showed moderate degenerative changes and disc bulging in your neck and lower back. X- ray of the shoulder showed no fracture. You were given physical therapy and were seen by the neurologist and neurosurgeon. They recommended continuing physical therapy and treating you pain with Gabapentin and Percocet and wearing a soft neck collar for comfort. Surgical intervention would only be considered a last resort for uncontrollable pain. Please follow up with neurology for possible nerve conduction testing electromyography of the arms. Continue all other home medications with the following change: Gabapentin increased to 300 mg by mouth 2 times a day. Percocet 5/325 mg every 6 hours NEEDED for severe pain. Please schedule a follow up appointment with neurologist Dr. Saúl Michelle [phone]. Please return to the ER if you have any signs or symptoms of chest pain, shortness of breath, uncontrollable fever, chills, nausea, vomiting, numbness, tingling, or weakness in any part of your body, changes in vision, or slurred speech. Please return to the ER if symptoms persist, worsen, or new symptoms arise. Shaye Ramsay @ [facility] [phone] Referrals: ON STAFF,NOT [Primary Care Provider] - Disposition: HOME - Home Medications Comprehensive Discharge Medication List: Ambulatory Orders Atorvastatin Ca [Lipitor] 40 mg PO HS 09/22/18 Bimatoprost [Lumigan] 1 drop IO HS 09/22/18 Brimonidine Tartrate/Timolol [Combigan 0.2%-0.5% Eye Drops] 1 drop OP BID Cyclosporine [Restasis] 1 each OP BID 09/22/18 Dexlansoprazole [Dexilant] 60 mg PO DAILY 09/22/18 Diclofenac Sodium 50 mg PO BID 09/22/18 Diphenhydramine HCl 50 mg PO HS 09/22/18 Empagliflozin [Jardiance] 25 mg PO DAILY 09/22/18 Linagliptin [Tradjenta] 5 mg PO DAILY 09/22/18 Megestrol Acetate [Megace -] 40 mg PO DAILY 09/22/18 Metformin HCl [Metformin HCl ER] 500 mg PO BID 09/22/18 Mirabegron [Myrbetriq] 25 mg PO DAILY 09/22/18 Montelukast Sodium [Singulair] 10 mg PO HS 09/22/18 Potassium Chloride 10 meq PO DAILY 09/22/18 Prazosin HCl [Minipress] 1 mg PO HS 09/22/18 Pregabalin [Lyrica -] 75 mg PO BID 09/22/18 Propylene Glycol/Peg 400/Pf [Systane Ultra 0.4-0.3% Eye Drp] 1 each OP QID 09/22 Torsemide [Demadex -] 10 mg PO DAILY 09/22/18 Vortioxetine Hydrobromide [Trintellix] 10 mg PO DAILY 09/22/18 traZODone HCL [Trazodone HCl] 100 mg PO HS 09/22/18 Brimonidine Tartrate [Alphagan 0.2% -] 1 drop OU BID drops 09/26/18 Docusate Sodium [Colace -] 100 mg PO TID capsule 09/26/18 Gabapentin [Neurontin -] 300 mg PO BID #60 capsule 09/26/18 Ketorolac Tromethamine [Toradol -] 10 mg PO Q6HPO PRN #30 tablet 09/26/18 Lidocaine 5% Patch [Lidoderm -] 1 patch TP DAILY #1 box 09/26/18 Timolol 0.5% [Timoptic 0.5%] 1 drop OU BID drops 09/26/18 - Discharge Referral Referred to [facility] No
--- NOTE | 2018-09-26 17:17 | PN ---
Physical Exam: SUBJECTIVE: Patient seen and examined. Patient reporting increased pain in the evening. Daughter is worried about having the mother in law return to her senior apartment with her 90 year old . Daughter also expressed concern about narcotic pain medications and risk for mother getting addicted. OBJECTIVE: Vital Signs Period Temp Pulse Resp BP Sys/Braden Pulse Ox Last 24 Hr 97 F-98.5 F 64-88 18-20 109-149/56-78 95-96 GENERAL: Elderly, alert, and fully oriented,fatigued HEAD: Normal with no signs of trauma. EYES: PERRL, extraocular movements intact, sclera anicteric, conjunctiva clear. No ptosis. ENT: Ears normal, nares patent, oropharynx clear without exudates, moist mucous membranes. NECK: Tenderness to left side. full range of motion, supple. LUNGS: Breath sounds equal, clear to auscultation bilaterally, no wheezes, no crackles, no accessory muscle use. HEART: Regular rate and rhythm, S1, S2 without murmur, rub or gallop. ABDOMEN: Soft, nontender, nondistended, normoactive bowel sounds, no guarding, no rebound, no hepatosplenomegaly, no masses. EXTREMITIES: 2+ pulses, warm, well-perfused, no edema. MS: Left scapular tenderness, full ROM UE though pain with left shoulder rotation. NEUROLOGICAL: No facial droop Normal speech, gait not observed. PSYCH: Normal mood, normal affect. 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.60 09/26/18 09/26/18 11:21 16:16 POC Glucometer 204 198 HSV II IgG Active Medications Generic Name Dose Route Start Last Admin Trade Name Freq PRN Reason Stop Dose Admin Acetaminophen 650 mg 09/25/18 19:59 09/26/18 11:24 Tylenol - PO 650 mg Q6H PRN Administration PAIN LEVEL 4 - 6 Atorvastatin Calcium 40 mg 09/25/18 22:00 09/25/18 22:52 Lipitor - PO 40 mg HS ALEX Administration Brimonidine Tartrate 1 drop 09/25/18 22:00 09/26/18 09:44 Alphagan 0.2% - OU 1 drop BID ALEX Administration Docusate Sodium 100 mg 09/25/18 22:00 09/26/18 13:03 Colace - PO 100 mg TID ALEX Administration Gabapentin 300 mg 09/25/18 22:00 09/26/18 09:43 Neurontin - PO 300 mg BID ALEX Administration Heparin Sodium (Porcine) 5,000 unit 09/25/18 22:00 09/26/18 09:43 Heparin - SQ 5,000 unit BID ALEX Administration Insulin Aspart 1 vial 09/25/18 22:00 09/26/18 11:24 Novolog Vial Sliding Scale - SQ 4 unit ACHS ALEX Administration Protocol Lidocaine 1 patch 09/26/18 10:00 09/26/18 09:44 Lidoderm Patch - TP 1 patch DAILY ALEX Administration Miscellaneous 1 each 09/25/18 22:00 09/25/18 22:52 Lidoderm Patch Removal MC 1 each DAILY@2200 ALEX Administration Morphine Sulfate 0.5 mg 09/25/18 19:59 09/26/18 07:49 Morphine Sulfate IVPUSH 0.5 mg Q6H PRN Administration PAIN LEVEL 7 - 10 Non-Formulary Medication 1 drop 09/25/18 22:00 Bimatoprost [Lumigan] IO HS ALEX Non-Formulary Medication 10 mg 09/26/18 10:00 Vortioxetine Hydrobromide [Trintellix] PO DAILY ALEX Oxycodone/Acetaminophen 1 combo 09/26/18 16:45 Percocet 5/325 - PO Q6H ALEX Prednisone 10 mg 09/27/18 08:00 Deltasone - PO 09/27/18 08:01 ONCE ONE Pregabalin 75 mg 09/25/18 22:00 09/26/18 09:43 Lyrica - PO 75 mg BID ALEX Administration Timolol Maleate 1 drop 09/25/18 22:00 09/26/18 11:23 Timoptic 0.5% OU 1 drop BID ALEX Administration Torsemide 10 mg 09/26/18 10:00 09/26/18 15:21 Demadex - PO 10 mg DAILY ALEX Administration Trazodone HCl 100 mg 09/25/18 22:00 09/25/18 22:51 Desyrel - PO 100 mg HS ALEX Administration ASSESSMENT/PLAN: 83 year old female with a PMH significant for diabetes, asthma, breast cancer and hypertension. Patient presented to the ED with 3 days pf sudden onset of back pain that radiates to the left shoulder scapula with numbness and tingling to left arm. In the ED a CTA was negative for dissection or PE. Head CT 09/22: negative for acute process Back pain/Left shoulder pain/difficulty ambulation - MRI of thoracic/lumbar spine: old fracture deformity left transverse process of l3 multilevel moderate degenerative changes. circumferential diffuse disc bulging l4-5 and l5-s1. - shoulder xray negative for acute process - Seen by neurology and neurosurgery - herpes titers ordered, neurontin added (300mg q 12h) - Pain management start Percocet 5/325 mg q 6 hrs and asses for sedation/AMS Diabetes - On novolog ss - Monitor BS hypertension continue home meds Rule out ACS - troponins negative - normal ekg. - D/kinga from telemetry monitoring FEN - tolerating PO - monitor electrolytes - low salt/diabetic Prophylaxis - Heparin SQ FULL CODE DISP: Patient requires further inpatient care for pain management, may be appropriate for d/c tomorrow. Visit type - Emergency Visit Emergency Visit: No - New Patient This patient is new to me today: Yes Date on this admission: 09/26/18 - Critical Care Critical Care patient: No
[2018-09-26] MEDS ORDERED: PT OWN MED DRAWER 7, Y5N ONE ×2 (17:35→20:50)
[2018-09-26] MEDS: ACETAMINOPHEN 325 MG TABLET (FP) PO SCH (17:45)
[2018-09-26] MEDS: oxyCODONE HCL 5 MG TABLET PO SCH (17:45)
[2018-09-26] MEDS: traZODone HCL 50 MG TABLET (FP) PO SCH (22:51)
[2018-09-26] MEDS: ATORVASTATIN CA 40 MG TABLET (FP) PO SCH (22:52)
[2018-09-26] MEDS: LIDOCAINE PATCH REMOVAL MC SCH (22:52)
[2018-09-26] MEDS: LATANOPROST 0.005% OPHTH SOLN 2.5ML BOTTLE OD SCH (22:54)
[2018-09-27] MEDS: ACETAMINOPHEN 325 MG TABLET (FP) PO SCH ×4 (00:49→18:46)
[2018-09-27] MEDS: oxyCODONE HCL 5 MG TABLET PO SCH ×4 (00:49→18:45)
[2018-09-27] MEDS: DOCUSATE SODIUM 100 MG CAPSULE (FP) PO SCH ×3 (06:11→22:37)
[2018-09-27] MEDS: INSULIN SLIDING SCALE (NOVOLOG) 1 VIAL SQ SCH ×4 (06:11→22:48)
[2018-09-27] MEDS ORDERED: predniSONE 10 MG TABLET (UD) PO ONE ×2 (08:00)
[2018-09-27] MEDS: PREGABALIN 75 MG CAPSULE PO SCH ×2 (09:34→22:38)
[2018-09-27] MEDS: GABAPENTIN 300 MG CAPSULE (FP) PO SCH ×2 (09:34→22:38)
[2018-09-27] MEDS: LIDOCAINE 5% TOPICAL PATCH TP SCH (09:34)
[2018-09-27] MEDS: HEPARIN NA (PORCINE) 5,000 UNITS/ML 1ML VIAL SQ SCH ×2 (09:34→22:00)
[2018-09-27] MEDS: TORSEMIDE 10 MG TABLET PO SCH (09:37)
--- NOTE | 2018-09-27 10:06 | PN ---
Progress Note (short form) - Note Progress Note: NEUROSURGERY Sitting up in bed Left shoulder and scapular pain PE: AF, VSS HEENT- NC/AT; neck- supple. L sided muscle spasm and L scapular tenderness; Cor - RRR; Lungs- CTA B; Abd- benign; Ext- no sign of DVT CN- intact; Motor- 5/5 except R triceps 4- pain limited; Sensation- decreased LT L C7; DTR- hyporeflexic, no LTS C spine MRI- multilevel DDD, small central disc protrusion C4-5 with thecal sac impingement; broad based C5-6 disc bulge/osteophyte with mild thecal sac impingement; L C6-7 paracentral disc protrusion with thecal sac and L C7 root impingement, mild stenosis L C6-7 HNP with L C7 radiculopathy Cont Neurontin PT/modalities Cont medical/conservative tx (PT, steroid then NSAIDS, neurontin/lyrica, possible EPSI) for pain control Soft collar for comfort Surgery reserved for intractable pain despite medical regimen above, and should be avoided if possible given age and other medical problems
--- NOTE | 2018-09-27 12:05 | PN ---
Physical Exam: SUBJECTIVE: Patient seen and examined in the solarium, and son present. She reports her pain is better than yesterday, about a 5/10. She tolerated the Percocet well without excessive sedation. Family prefers to take her home tomorrow when their pharmacy is open so she will not have to be without her pain medications. OBJECTIVE: Vital Signs Period Temp Pulse Resp BP Sys/Braden Pulse Ox Last 24 Hr 97 F-98.3 F 60-70 20-20 99-116/55-67 95 GENERAL: Elderly, alert, and fully oriented,fatigued HEAD: Normal with no signs of trauma. EYES: Conjunctiva injected b/l, PERRL, extraocular movements intact, sclera anicteric, No ptosis. ENT: Ears normal, nares patent, oropharynx clear without exudates, moist mucous membranes. NECK: Tenderness to left side. full range of motion, supple. LUNGS: Breath sounds equal, clear to auscultation bilaterally, no wheezes, no crackles, no accessory muscle use. HEART: Regular rate and rhythm, S1, S2 without murmur, rub or gallop. ABDOMEN: Soft, nontender, nondistended, normoactive bowel sounds, no guarding, no rebound, no hepatosplenomegaly, no masses. EXTREMITIES: 2+ pulses, warm, well-perfused, no edema. MS: Left scapular tenderness, full ROM UE though pain with left shoulder rotation. NEUROLOGICAL: No facial droop Normal speech, gait not observed. PSYCH: Normal mood, normal affect. SKIN: Warm, dry, normal turgor, no rashes or lesions noted Laboratory Results - last 24 hr 09/26/18 09/26/18 09/27/18 16:16 22:48 06:04 POC Glucometer 198 190 116 Active Medications Generic Name Dose Route Start Last Admin Trade Name Freq PRN Reason Stop Dose Admin Acetaminophen 650 mg 09/25/18 19:59 09/26/18 11:24 Tylenol - PO 650 mg Q6H PRN Administration PAIN LEVEL 4 - 6 Acetaminophen 325 mg 09/26/18 18:00 09/27/18 06:11 Tylenol - PO 325 mg Q6HPO ALEX Administration Atorvastatin Calcium 40 mg 09/25/18 22:00 09/26/18 22:52 Lipitor - PO 40 mg HS ALEX Administration Brimonidine Tartrate 1 drop 09/25/18 22:00 09/26/18 22:51 Alphagan 0.2% - OU 1 drop BID ALEX Administration Docusate Sodium 100 mg 09/25/18 22:00 09/27/18 06:11 Colace - PO 100 mg TID ALEX Administration Gabapentin 300 mg 09/25/18 22:00 09/27/18 09:34 Neurontin - PO 300 mg BID ALEX Administration Heparin Sodium (Porcine) 5,000 unit 09/25/18 22:00 09/27/18 09:34 Heparin - SQ 5,000 unit BID ALEX Administration Insulin Aspart 1 vial 09/25/18 22:00 09/27/18 06:11 Novolog Vial Sliding Scale - SQ Not Given ACHS [facility] Protocol Latanoprost 1 drop 09/26/18 22:00 09/26/18 22:54 Xalatan 0.005% Eye Drops - OD 1 drop HS ALEX Administration Lidocaine 1 patch 09/26/18 10:00 09/27/18 09:34 Lidoderm Patch - TP 1 patch DAILY ALEX Administration Miscellaneous 1 each 09/25/18 22:00 09/26/18 22:52 Lidoderm Patch Removal MC 1 each DAILY@2200 ALEX Administration Morphine Sulfate 0.5 mg 09/25/18 19:59 09/26/18 07:49 Morphine Sulfate IVPUSH 0.5 mg Q6H PRN Administration PAIN LEVEL 7 - 10 Non-Formulary Medication 10 mg 09/26/18 10:00 Vortioxetine Hydrobromide [Trintellix] PO DAILY ALEX Oxycodone HCl 5 mg 09/26/18 18:00 09/27/18 06:11 Roxicodone - PO 5 mg Q6HPO ALEX Administration Pregabalin 75 mg 09/25/18 22:00 09/27/18 09:34 Lyrica - PO 75 mg BID ALEX Administration Timolol Maleate 1 drop 09/25/18 22:00 09/26/18 22:56 Timoptic 0.5% OU 1 drop BID ALEX Administration Torsemide 10 mg 09/26/18 10:00 09/27/18 09:37 Demadex - PO 10 mg DAILY ALEX Administration Trazodone HCl 100 mg 09/25/18 22:00 09/26/18 22:51 Desyrel - PO 100 mg HS ALEX Administration ASSESSMENT/PLAN: 83 year old female with a PMH significant for diabetes, asthma, breast cancer and hypertension. Patient presented to the ED with 3 days pf sudden onset of back pain that radiates to the left shoulder scapula with numbness and tingling to left arm. In the ED a CTA was negative for dissection or PE. Head CT 09/22: negative for acute process Back pain/Left shoulder pain/difficulty ambulation - MRI of thoracic/lumbar spine: old fracture deformity left transverse process of l3 multilevel moderate degenerative changes. circumferential diffuse disc bulging l4-5 and l5-s1. - shoulder xray negative for acute process - Seen by neurology and neurosurgery - herpes titers ordered, neurontin added (300mg q 12h) - Pain management with Percocet 5/325 mg q 6 hrs, will now change to PRN, patient tolerated well. Not overly sedated. Diabetes - On novolog ss - Monitor BS hypertension continue home meds Rule out ACS - troponins negative - normal ekg. - D/kinga from telemetry monitoring FEN - tolerating PO - monitor electrolytes - low salt/diabetic Prophylaxis - Heparin SQ DISP: patient to be d/kinga tomorrow. FULL CODE DISP: Patient requires further inpatient care for pain management, may be appropriate for d/c tomorrow. Visit type - Emergency Visit Emergency Visit: No - New Patient This patient is new to me today: No - Critical Care Critical Care patient: No
[2018-09-27] MEDS ORDERED: PT OWN MED DRAWER 7, Y5N ONE (13:40)
[2018-09-27] MEDS: TIMOLOL 0.5% OPHTHALMIC SOL 5 ML BOTTLE OU SCH ×2 (13:42→22:41)
[2018-09-27] MEDS: BRIMONIDINE TARTRATE 0.2% OPHTHALMIC 5 ML BOTTLE OU SCH ×2 (13:42→22:36)
[2018-09-27] MEDS ORDERED: INSULIN (NOVOLOG) ASPART 100 UNITS/ML 10ML VIAL ONE (21:07)
[2018-09-27] MEDS: ATORVASTATIN CA 40 MG TABLET (FP) PO SCH (22:37)
[2018-09-27] MEDS: LIDOCAINE PATCH REMOVAL MC SCH (22:37)
[2018-09-27] MEDS: traZODone HCL 50 MG TABLET (FP) PO SCH (22:38)
[2018-09-27] MEDS: LATANOPROST 0.005% OPHTH SOLN 2.5ML BOTTLE OD SCH (22:40)
[2018-09-28] MEDS: ACETAMINOPHEN 325 MG TABLET (FP) PO SCH ×3 (05:04→13:13)
[2018-09-28] MEDS: oxyCODONE HCL 5 MG TABLET PO SCH ×3 (05:24→13:14)
[2018-09-28] MEDS: DOCUSATE SODIUM 100 MG CAPSULE (FP) PO SCH ×2 (05:24→13:13)
[2018-09-28] MEDS: INSULIN SLIDING SCALE (NOVOLOG) 1 VIAL SQ SCH ×2 (06:11→12:47)
--- NOTE | 2018-09-28 08:11 | DS ---
Physical Exam: SUBJECTIVE: Patient seen and examined, reporting some pain in her left scapula region with numbness and tingling to her left arm. Denies SOB, chest pain, palpitations, n/v/d. OBJECTIVE: Vital Signs Period Temp Pulse Resp BP Sys/Braden Pulse Ox Last 24 Hr 97.9 F-98.6 F 58-75 20-20 99-132/56-68 95-95 PHYSICAL EXAM GGENERAL: Elderly, alert, fatigued HEAD: Normal with no signs of trauma. EYES: Conjunctiva injected b/l, PERRL, extraocular movements intact, sclera anicteric, No ptosis. ENT: Ears normal, nares patent, oropharynx clear without exudates, moist mucous membranes. NECK: Tenderness to left side. full range of motion, supple. LUNGS: Breath sounds equal, clear to auscultation bilaterally, no wheezes, no crackles, no accessory muscle use. HEART: Regular rate and rhythm, S1, S2 without murmur, rub or gallop. ABDOMEN: Soft, nontender, nondistended, normoactive bowel sounds, no guarding, no rebound, no hepatosplenomegaly, no masses. EXTREMITIES: 2+ pulses, warm, well-perfused, no edema. MS: Left scapular tenderness, full ROM UE though pain with left shoulder rotation. NEUROLOGICAL: No facial droop Normal speech, gait not observed. PSYCH: Normal mood, normal affect. SKIN: Warm, dry, normal turgor, no rashes or lesions noted LABS Laboratory Results - last 24 hr 09/27/18 09/27/18 09/27/18 12:26 16:51 22:47 POC Glucometer 250 274 216 09/28/18 06:08 POC Glucometer 121 HOSPITAL COURSE: Date of Admission:09/24/18 Date of Discharge: 09/28/18 83 year old female admitted to [facility] from 09/22/18 - 09/26/18 for left shoulder/back pain and difficulty walking. Neck/back pain that radiates to the left shoulder/scapula with some numbness and tingling of left hand. She is set to be discharged to home today. Back pain/Left shoulder pain/difficulty ambulation - MRI of thoracic/lumbar spine: old fracture deformity left transverse process of l3 multilevel moderate degenerative changes. circumferential diffuse disc bulging l4-5 and l5-s1. - shoulder xray negative for acute process - Seen by neurology and neurosurgery - herpes titers ordered, neurontin added (300mg q 12h) - Pain management with Percocet 5/325 mg q 6 hrs, will now change to PRN, patient tolerated well. Not overly sedated. Diabetes - On novolog ss - Resume home medications - Monitor BS hypertension - continue home meds Rule out ACS - troponins negative - normal ekg. - D/kinga from telemetry monitoring Minutes to complete discharge: 30 Discharge Summary Reason For Visit: PAIN OF LEFT SCAPULA, NUMBNESS AND TINGLING OF Current Active Problems Numbness and tingling in left hand (Acute) Pain of left scapula (Acute) Condition: Stable - Instructions Diet, Activity, Other Instructions: Alfonzo Gonzalez were admitted at [facility] from 09/22/18 - 09/28/18 for left shoulder/back pain and difficulty walking. Neck/back pain that radiates to the left shoulder scapula. Some numbness and tingling of left hand. You had an MRI of your cervical, thoracic and lumbar spine which showed moderate degenerative changes and disc bulging in your neck and lower back. X- ray of the shoulder showed no fracture. You were given physical therapy and were seen by the neurologist and neurosurgeon. They recommended continuing physical therapy and treating you pain with Gabapentin and Percocet and wearing a soft neck collar for comfort. Surgical intervention would only be considered a last resort for uncontrollable pain. Please follow up with neurology for possible nerve conduction testing electromyography of the arms. Continue all other home medications with the following change: Gabapentin increased to 300 mg by mouth 2 times a day. Percocet 5/325 mg every 6 hours NEEDED for severe pain. Please schedule a follow up appointment with neurologist Dr. Saúl Michelle [phone]. Please return to the ER if you have any signs or symptoms of chest pain, shortness of breath, uncontrollable fever, chills, nausea, vomiting, numbness, tingling, or weakness in any part of your body, changes in vision, or slurred speech. Please return to the ER if symptoms persist, worsen, or new symptoms arise. Shaye [facility] @ [facility] [phone] Referrals: ON STAFF,NOT [Primary Care Provider] - Disposition: HOME - Home Medications Comprehensive Discharge Medication List: Ambulatory Orders Atorvastatin Ca [Lipitor] 40 mg PO HS 09/22/18 Bimatoprost [Lumigan] 1 drop IO HS 09/22/18 Brimonidine Tartrate/Timolol [Combigan 0.2%-0.5% Eye Drops] 1 drop OP BID Cyclosporine [Restasis] 1 each OP BID 09/22/18 Dexlansoprazole [Dexilant] 60 mg PO DAILY 09/22/18 Diclofenac Sodium 50 mg PO BID 09/22/18 Diphenhydramine HCl 50 mg PO HS 09/22/18 Empagliflozin [Jardiance] 25 mg PO DAILY 09/22/18 Linagliptin [Tradjenta] 5 mg PO DAILY 09/22/18 Megestrol Acetate [Megace -] 40 mg PO DAILY 09/22/18 Metformin HCl [Metformin HCl ER] 500 mg PO BID 09/22/18 Mirabegron [Myrbetriq] 25 mg PO DAILY 09/22/18 Montelukast Sodium [Singulair] 10 mg PO HS 09/22/18 Potassium Chloride 10 meq PO DAILY 09/22/18 Prazosin HCl [Minipress] 1 mg PO HS 09/22/18 Pregabalin [Lyrica -] 75 mg PO BID 09/22/18 Propylene Glycol/Peg 400/Pf [Systane Ultra 0.4-0.3% Eye Drp] 1 each OP QID 09/22 Torsemide [Demadex -] 10 mg PO DAILY 09/22/18 Vortioxetine Hydrobromide [Trintellix] 10 mg PO DAILY 09/22/18 traZODone HCL [Trazodone HCl] 100 mg PO HS 09/22/18 Brimonidine Tartrate [Alphagan 0.2% -] 1 drop OU BID drops 09/26/18 Docusate Sodium [Colace -] 100 mg PO TID capsule 09/26/18 Gabapentin [Neurontin -] 300 mg PO BID #60 capsule 09/26/18 Ketorolac Tromethamine [Toradol -] 10 mg PO Q6HPO PRN #30 tablet 09/26/18 Lidocaine 5% Patch [Lidoderm -] 1 patch TP DAILY #1 box 09/26/18 Timolol 0.5% [Timoptic 0.5%] 1 drop OU BID drops 09/26/18 This patient is new to me today: No Emergency Visit: No Critical Care patient: No - Discharge Referral Referred to [facility] No
[2018-09-28] MEDS: BRIMONIDINE TARTRATE 0.2% OPHTHALMIC 5 ML BOTTLE OU SCH (09:42)
[2018-09-28] MEDS: GABAPENTIN 300 MG CAPSULE (FP) PO SCH (09:43)
[2018-09-28] MEDS: HEPARIN NA (PORCINE) 5,000 UNITS/ML 1ML VIAL SQ SCH (09:43)
[2018-09-28] MEDS: LIDOCAINE 5% TOPICAL PATCH TP SCH (09:43)
[2018-09-28] MEDS: PREGABALIN 75 MG CAPSULE PO SCH (09:43)
[2018-09-28] MEDS: TIMOLOL 0.5% OPHTHALMIC SOL 5 ML BOTTLE OU SCH (09:44)
[2018-09-28] MEDS: TORSEMIDE 10 MG TABLET PO SCH (09:44)
--- NOTE | 2018-09-28 11:04 | PN ---
Progress Note, Physician History of Present Illness: events noted Chart reviewed Seen on the floor with the son at the bedside , Much less pain Calm No neuro neurological events By translation patient with no symptoms on the left arm - Current Medication List Current Medications: Active Medications Acetaminophen (Tylenol -) 650 mg PO Q6H PRN PRN Reason: PAIN LEVEL 4 - 6 Last Admin: 09/26/18 11:24 Dose: 650 mg Acetaminophen (Tylenol -) 325 mg PO Q6HPO [facility] Last Admin: 09/28/18 05:04 Dose: Not Given Atorvastatin Calcium (Lipitor -) 40 mg PO HS [facility] Last Admin: 09/27/18 22:37 Dose: 40 mg Brimonidine Tartrate (Alphagan 0.2% -) 1 drop OU BID [facility] Last Admin: 09/28/18 09:42 Dose: 1 drop Docusate Sodium (Colace -) 100 mg PO TID [facility] Last Admin: 09/28/18 05:24 Dose: 100 mg Gabapentin (Neurontin -) 300 mg PO BID [facility] Last Admin: 09/28/18 09:43 Dose: 300 mg Heparin Sodium (Porcine) (Heparin -) 5,000 unit SQ BID [facility] Last Admin: 09/28/18 09:43 Dose: 5,000 unit Insulin Aspart (Novolog Vial Sliding Scale -) 1 vial SQ [facility]; Protocol Last Admin: 09/28/18 06:11 Dose: Not Given Latanoprost (Xalatan 0.005% Eye Drops -) 1 drop OD [facility] Last Admin: 09/27/18 22:40 Dose: 1 drop Lidocaine (Lidoderm Patch -) 1 patch TP DAILY [facility] Last Admin: 09/28/18 09:43 Dose: 1 patch Miscellaneous (Lidoderm Patch Removal) 1 each MC DAILY@2200 [facility] Last Admin: 09/27/18 22:37 Dose: 1 each Morphine Sulfate (Morphine Sulfate) 0.5 mg IVPUSH Q6H PRN PRN Reason: PAIN LEVEL 7 - 10 Last Admin: 09/26/18 07:49 Dose: 0.5 mg Non-Formulary Medication (Vortioxetine Hydrobromide [Trintellix]) 10 mg PO DAILY [facility] Oxycodone HCl (Roxicodone -) 5 mg PO Q6HPO [facility] Last Admin: 09/28/18 05:24 Dose: 5 mg Pregabalin (Lyrica -) 75 mg PO BID [facility] Last Admin: 09/28/18 09:43 Dose: 75 mg Timolol Maleate (Timoptic 0.5%) 1 drop OU BID [facility] Last Admin: 09/28/18 09:44 Dose: 1 drop Torsemide (Demadex -) 10 mg PO DAILY [facility] Last Admin: 09/28/18 09:44 Dose: 10 mg Trazodone HCl (Desyrel -) 100 mg PO HS [facility] Last Admin: 09/27/18 22:38 Dose: 100 mg - Objective Vital Signs: Vital Signs Temperature 98 F 09/28/18 06:00 Pulse Rate 58 L 09/28/18 06:00 Respiratory Rate 20 09/28/18 06:00 Blood Pressure 132/60 09/28/18 06:00 O2 Sat by Pulse Oximetry (%) 95 09/27/18 21:00 Constitutional: Yes: Well Nourished Eyes: Yes: WNL Neurological: Yes: Alert, Oriented, Babinski negative ...Motor Strength: WNL, LUE (3) Labs: CBC, BMP 09/24/18 05:30 09/24/18 05:30 Problem List - Problems (1) Numbness and tingling in left hand Assessment/Plan: cervical radiculopathy Questionable neurology a 1. Continue Lidoderm patches. 2. Neurontin upon discharge. 3. Physical therapy as an outpatient. 4. Follow-up with neurology as an outpatient for nerve conduction testing electromyography of the upper extremities. Code(s): R20.0 - ANESTHESIA OF SKIN; R20.2 - PARESTHESIA OF SKIN
[2018-09-28 13:52] VITALS: BP 111/55; PULSE 61; TEMP 98.2
--- NOTE | 2018-09-28 16:36 | PN ---
Progress Note (short form) - Note Progress Note: NEUROSURGERY Sitting up in bed Left shoulder and scapular pain Wants to go home PE: AF, VSS HEENT- NC/AT; neck- supple. L sided muscle spasm and L scapular tenderness; Cor - RRR; Lungs- CTA B; Abd- benign; Ext- no sign of DVT CN- intact; Motor- 5/5 except R triceps 4- pain limited; Sensation- decreased LT L C7; DTR- hyporeflexic, no LTS L C6-7 HNP with L C7 radiculopathy Cont medical/conservative tx (PT, steroid then NSAIDS, neurontin/lyrica, possible EPSI) for pain control Soft collar for comfort
== END 2018-09-28 16:52 | disposition home or self-care (01) | DRG 552 ==
LOC: JER 08:43 → JERBED 12:05 → J4W 22:40 → OBSVTOIN 09-24 14:14 → J7W 09-25 13:38
PROVIDERS: ADMIT Internal Medicine; ATTEND Nurse Practitioner Adult Health
DX: M50.123 Cervical disc disorder at C6-C7 level with radiculopathy (principal); J45.909 Unspecified asthma, uncomplicated; I10 Essential (primary) hypertension; E11.9 Type 2 diabetes mellitus without complications; Z79.84 Long term (current) use of oral hypoglycemic drugs; R20.2 Paresthesia of skin; H40.9 Unspecified glaucoma; F32.9 Major depressive disorder, single episode, unspecified; I25.10 Atherosclerotic heart disease of native coronary artery without angina pectoris; F03.90 Unspecified dementia, unspecified severity, without behavioral disturbance, psychotic disturbance, mood disturbance, and anxiety; C50.919 Malignant neoplasm of unspecified site of unspecified female breast; M25.512 Pain in left shoulder
CPT/HCPCS: 36415; 70450-TC; 71045-TC-FY; 71275-TC; 72128-TC; 72131-TC; 72141-TC; 73030-TC-LT-FY; 74174-TC; 80048; 80053; 80061; 82607; 82962; 83036; 83721; 83735; 84484; 85025; 85027; 85651; 86140; 86696; 86790; 93005; 93010; 97116-GP; 97161-GP; 99283-25; G0378; J0131; J1644

== ENCOUNTER 2024-02-02 19:51 | Inpatient (IN) | payer OTHER ==
[2024-02-02 21:52] LABS: BASO % 0.5 % (0-2.0); EOS % 0.7 % (0-4.5); HEMATOCRIT 35.5 % (32.4-45.2); LYMPH % 19.7 % (8-40); MCH 30.7 pg (25.7-33.7); MEAN CELL VOLUME 90.2 fl (80-96); MEAN PLT VOLUME 8.3 fl (7.5-11.1); MONO % 8.1 % (3.8-10.2); PLATELET COUNT 311 10^3/uL (134-434); RBC 3.93 M/mm3 (3.60-5.2); RDW 13.7 % (11.6-15.6); WHITE BLOOD COUNT 7.7 K/mm3 (4.0-10.0)
[2024-02-02 22:07] LABS: POTASSIUM 4.8 mmol/L (3.5-5.1)
[2024-02-02 22:09] LABS: CALCIUM 9.7 mg/dL (8.5-10.1)
[2024-02-02 22:10] LABS: ALBUMIN 2.8 g/dl (3.4-5.0); BLOOD UREA NITROGEN 23.8 mg/dL (7-18)
[2024-02-02 22:13] LABS: CREATININE 0.8 mg/dL (0.55-1.3)
[2024-02-02 22:14] LABS: BILIRUBIN,TOTAL 0.8 mg/dL (0.2-1); TOT PROT 6.8 g/dl (6.4-8.2)
[2024-02-02] MEDS ORDERED: ACETAMINOPHEN INJECTION 100 ML IVPB ONE (23:40)
[2024-02-02] MEDS ORDERED: LIDOCAINE 4% PATCH TP ONE (23:40)
[2024-02-02] MEDS: ACETAMINOPHEN 1000 MG/100 ML BAG IVPB ONE (23:52)
[2024-02-02] MEDS: LIDOCAINE 4% PATCH TP ONE (23:53)
[2024-02-03] MEDS: LIDOCAINE PATCH REMOVAL MC SCH (00:41)
[2024-02-03] MEDS: morphine CARPU-JECT 2 MG/1 ML DISP.SYRIN IVPUSH ONE (01:01)
[2024-02-03] MEDS: SODIUM CHLORIDE 0.9% 500 ML INFUS.BAG IV ONE (01:37)
[2024-02-03 04:35] LABS: EPI CELLS 14 /uL (0-25.1); HYALINE CASTS 0 /uL (0-3.1); PH,URINE 5.5 (5.0-8.0); URINE APPEARANCE CLEAR; URINE BILIRUBIN NEGATIVE (NEGATIVE); URINE COLOR YELLOW; URINE GLUCOSE (UA) NEGATIVE (NEGATIVE); URINE KETONE 1+ (NEGATIVE); URINE LEUK ESTERASE 2+ (NEGATIVE); URINE NITRITE POSITIVE (NEGATIVE); URINE PROTEIN NEGATIVE (NEGATIVE); URINE UROBILINOGEN 0.2 mg/dL (0.2-1.0); URINE WBC 108 /uL (0-25.8)
[2024-02-03] MEDS ORDERED: CEFTRIAXONE 1 GM/50 ML BAG ONE (05:05)
[2024-02-03 06:51] LABS: URINE RBC 12.4 /uL (0-23.9)
[2024-02-03] MEDS ORDERED: CYCLOBENZAPRINE HCL 10 MG TABLET (FP) ONE (08:54)
[2024-02-03] MEDS: DONEPEZIL HCL 5 MG TABLET (FP) PO SCH (09:24)
[2024-02-03] MEDS: FUROSEMIDE 20 MG TABLET (FP) PO SCH (09:24)
[2024-02-03] MEDS: CYCLOBENZAPRINE HCL 5 MG TABLET PO SCH (09:25)
[2024-02-03] MEDS: GABAPENTIN 300 MG CAPSULE PO SCH (09:25)
[2024-02-03 11:18] VITALS: BMI 26.4
[2024-02-03] MEDS: PATIENT'S OWN MEDICATION (NON-FORMULARY) (Netarsudil Mesylat/Latanoprost [Rocklatan 0.02%- OU SCH ×2 (14:41→22:07)
[2024-02-03] MEDS: TIMOLOL 0.5% OPHTHALMIC SOL 5 ML BOTTLE OU SCH (14:46)
[2024-02-03] MEDS: CELECOXIB 100 MG CAPSULE PO SCH (14:46)
[2024-02-03] MEDS: BRIMONIDINE TARTRATE 0.2% OPHTHALMIC 5 ML BOTTLE OU SCH (14:46)
[2024-02-03] MEDS: MONTELUKAST NA 10 MG TABLET PO SCH (22:06)
[2024-02-03] MEDS: HEPARIN NA (PORCINE) 5,000 UNITS/ML 1ML VIAL SQ SCH (22:06)
[2024-02-03] MEDS: ROSUVASTATIN CA 5 MG TABLET PO SCH (22:06)
[2024-02-04 09:49] LABS: BASO % 0.4 % (0-2.0); HEMOGLOBIN 11.5 GM/dL (10.7-15.3); LYMPH % 26.3 % (8-40); MCH 30.8 pg (25.7-33.7); MCHC 33.7 g/dl (32.0-36.0); MEAN CELL VOLUME 91.2 fl (80-96); MEAN PLT VOLUME 7.5 fl (7.5-11.1); MONO % 7.1 % (3.8-10.2); NEUT % 63.2 % (42.8-82.8); PLATELET COUNT 285 10^3/uL (134-434); RBC 3.73 M/mm3 (3.60-5.2); RDW 13.6 % (11.6-15.6); WHITE BLOOD COUNT 5.5 K/mm3 (4.0-10.0)
[2024-02-04 10:20] LABS: POTASSIUM 4.2 mmol/L (3.5-5.1)
[2024-02-04 10:23] LABS: CALCIUM 8.8 mg/dL (8.5-10.1)
[2024-02-04 10:24] LABS: ALBUMIN 2.7 g/dl (3.4-5.0); BLOOD UREA NITROGEN 23.1 mg/dL (7-18); MAGNESIUM 2.2 mg/dL (1.8-2.4)
[2024-02-04 10:27] LABS: CREATININE 0.6 mg/dL (0.55-1.3)
[2024-02-04 10:28] LABS: BILIRUBIN,TOTAL 0.4 mg/dL (0.2-1); TOT PROT 6.4 g/dl (6.4-8.2)
[2024-02-04] MEDS: ACETAMINOPHEN 1000 MG/100 ML BAG IVPB ONE (10:43)
[2024-02-04] MEDS: INSULIN ASPART SLIDING SCALE (NOVOLOG) 1 VIAL SQ SCH (11:01)
[2024-02-04] MEDS: HEPARIN NA (PORCINE) 5,000 UNITS/ML 1ML VIAL SQ SCH (14:23)
[2024-02-04] MEDS ORDERED: ACETAMINOPHEN 1000 MG/100 ML BAG IVPB PRN (17:59)
[2024-02-05 10:00] LABS: HEMATOCRIT 33.3 % (32.4-45.2); HEMOGLOBIN 11.3 GM/dL (10.7-15.3); MEAN CELL VOLUME 91.1 fl (80-96); MEAN PLT VOLUME 7.7 fl (7.5-11.1); PLATELET COUNT 304 10^3/uL (134-434); RBC 3.66 M/mm3 (3.60-5.2); RDW 13.6 % (11.6-15.6); WHITE BLOOD COUNT 4.3 K/mm3 (4.0-10.0)
[2024-02-05 10:19] LABS: POTASSIUM 4.3 mmol/L (3.5-5.1)
[2024-02-05 10:20] LABS: BLOOD UREA NITROGEN 21.7 mg/dL (7-18); CALCIUM 8.9 mg/dL (8.5-10.1); MAGNESIUM 2.3 mg/dL (1.8-2.4)
[2024-02-05 10:24] LABS: CREATININE 0.6 mg/dL (0.55-1.3)
[2024-02-05 17:36] VITALS: RESP 18
[2024-02-06 09:31] LABS: HEMATOCRIT 36.6 % (32.4-45.2); MCH 29.8 pg (25.7-33.7); MCHC 32.7 g/dl (32.0-36.0); MEAN CELL VOLUME 91.4 fl (80-96); MEAN PLT VOLUME 7.4 fl (7.5-11.1); PLATELET COUNT 342 10^3/uL (134-434); RBC 4.01 M/mm3 (3.60-5.2); RDW 13.3 % (11.6-15.6); WHITE BLOOD COUNT 5.9 K/mm3 (4.0-10.0)
[2024-02-06 09:56] LABS: POTASSIUM 4.6 mmol/L (3.5-5.1)
[2024-02-06 10:01] LABS: CALCIUM 9.2 mg/dL (8.5-10.1)
[2024-02-06 10:02] LABS: MAGNESIUM 2.3 mg/dL (1.8-2.4)
[2024-02-06 10:04] LABS: CREATININE 0.7 mg/dL (0.55-1.3)
[2024-02-07] MEDS: CYCLOBENZAPRINE HCL 5 MG TABLET PO PRN (02:45)
[2024-02-07 08:55] VITALS: BP 113/58; PULSE 77; TEMP 98.5
[2024-02-07 09:17] LABS: HEMATOCRIT 36.2 % (32.4-45.2); MCH 30.1 pg (25.7-33.7); MEAN CELL VOLUME 91.2 fl (80-96); MEAN PLT VOLUME 7.4 fl (7.5-11.1); PLATELET COUNT 326 10^3/uL (134-434); RBC 3.97 M/mm3 (3.60-5.2); RDW 13.6 % (11.6-15.6); WHITE BLOOD COUNT 5.6 K/mm3 (4.0-10.0)
[2024-02-07] MEDS: CYANOCOBALAMIN 1,000 MCG TABLET (FP) PO SCH (09:36)
[2024-02-07] MEDS: FOLIC ACID 1 MG TABLET (FP) PO SCH (09:36)
[2024-02-07 09:51] LABS: BLOOD UREA NITROGEN 24.3 mg/dL (7-18)
[2024-02-07 09:55] LABS: CREATININE 0.7 mg/dL (0.55-1.3)
== END 2024-02-07 11:09 | disposition home health service (06) | DRG 552 ==
LOC: JER 19:51 → JERBED 02-03 07:11 → J5S 02-03 10:44 → OBSVTOIN 02-03 17:53
PROVIDERS: ADMIT Internal Medicine; ATTEND Nurse Practitioner Acute Care
DX: M54.2 Cervicalgia (principal); E11.9 Type 2 diabetes mellitus without complications; I10 Essential (primary) hypertension; R82.81 Pyuria; E78.00 Pure hypercholesterolemia, unspecified; Z85.3 Personal history of malignant neoplasm of breast; Z98.890 Other specified postprocedural states
CPT/HCPCS: 36415; 71045-TC-FY; 72040-TC; 72125-TC; 72141-TC; 80048; 80053; 81003; 82962; 83735; 85025; 85027; 87086; 93005; 93010; 97116-GP; 97161-GP; 99285-25; G0378; J0131; J1644

== ENCOUNTER 2024-08-18 11:14 | Emergency (ER) | payer OTHER ==
[2024-08-18 11:38] VITALS: RESP 18; TEMP 97.1; BMI 21.4
[2024-08-18] MEDS: DOXYCYCLINE HYCLATE 100 MG CAPSULE PO ONE (12:42)
[2024-08-18 15:15] LABS: EPI CELLS 16 /uL (0-25.1); HYALINE CASTS 0 /uL (0-3.1); URINE APPEARANCE CLEAR; URINE BACTERIA 685 /uL (0-1359); URINE BILIRUBIN NEGATIVE (NEGATIVE); URINE COLOR DK YELLOW; URINE GLUCOSE (UA) NEGATIVE (NEGATIVE); URINE KETONE TRACE (NEGATIVE); URINE LEUK ESTERASE 2+ (NEGATIVE); URINE NITRITE NEGATIVE (NEGATIVE); URINE PROTEIN NEGATIVE (NEGATIVE); URINE RBC 17 /uL (0-23.9); URINE UROBILINOGEN 0.2 mg/dL (0.2-1.0); URINE WBC 16 /uL (0-25.8)
[2024-08-18 15:28] VITALS: BP 131/67; PULSE 71
[2024-08-18 15:33] LABS: YEAST NONE SEEN (NEGATIVE)
[2024-08-18] MEDS ORDERED: SULFAMETHOXAZOLE/TRIMETHOPRIM 800MG/160MG D.S. TABLET ONE (15:35)
[2024-08-18] MEDS: SULFAMETHOXAZOLE/TRIMETHOPRIM 800MG/160MG D.S. TABLET PO ONE (15:54)
== END 2024-08-18 16:31 | disposition home or self-care (01) ==
LOC: JER 11:14
DX: L02.214 Cutaneous abscess of groin (principal); N39.0 Urinary tract infection, site not specified
CPT/HCPCS: 81003; 87070; 87076; 87086; 87205; 99283-25